=== PATIENT | male | born 1945 | race Caucasian/White ===

== ENCOUNTER 2016-08-30 20:32 | Inpatient (IN) | payer OTHER ==
[~2016-08-30] VITALS: Ht 188 cm; Wt 96.1 kg
[~2016-08-30 20:32] MED LIST: ALKA SELTZER PO; AMBIEN5 MG PO; ASPIRIN81 M1 PO; ATORVASTATIN CA40 MG PO; BUPROPION HCL75 MG PO; CARVEDILOL12.5 MG PO; CARVEDILOL25 MG PO; EXCEDRIN EXTRA1 TAB PO; FENOFIBRATE160 MG PO; FUROSEMIDE20 MG PO; FUROSEMIDE40 MG PO; HYDRALAZINE HCL25 MG PO; IRBESARTAN300 MG PO; ISOSORBIDE MONO30 MG PO; LANTUS SOL100 UNITS/ SC; LIPITOR80 MG PO; LOPRESSOR25 MG PO; NEURONTIN300 MG PO; NITROSTAT0.4 MG SL; NOVOLOG PE100 UNITS/ SC; OMEPRAZOLE20 M1 PO; PX ASPIRIN325 MG PO; SEROQUEL100 MG PO; SERTRALINE HCL100 MG PO; SPIRONOLACTONE25 MG PO; TAMSULOSIN HCL0.4 MG PO; VICODIN EQUIVAL1 TAB PO; WELLBUTRIN SR150 MG PO; [UNRECOGNIZED DRUG - OTHER] PO
--- NOTE | 2016-08-30 22:43 | DIAGNOSTIC IMAGING REPORT ---
PROCEDURE: XR CHEST 1 VIEW INDICATION: SHORTNESS OF BREATH TECHNIQUE: Portable AP view 09:09 p.m. COMPARISON: Chest x-ray 02/19/2015 FINDINGS: Stable mild cardiomegaly with median sternotomy and CABG. There is new mild pulmonary vascular congestion and small bilateral pleural effusions. Lungs are clear. Bones are unremarkable. IMPRESSION: 1. Stable mild cardiomegaly with mild CHF 2. CABG
--- NOTE | 2016-08-30 23:08 | ED NURSING NOTES ---
Clinical Report - Nurses Merged With [facility] [address] [place] [address] 08/30/2016 20:33 Patient: VENUS RODRIGUEZ TRIAGE Triage time 20:36. Acuity: LEVEL 2. Chief Complaint: SHORTNESS OF BREATH and (Reports onset SOB about 4 days ago. Says he has hx of CHF. Has not tried any treatment. Saw PCP about 2 weeks ago. Activity aggravates SOB, alleviating factors "B-PAP."). Alert. SEPSIS SCREEN: Sepsis Screen: negative. Negative (no infection suspected/documented). --20:43 Saad Gaviria R.N. 20:36 08/30/16. BP: 131/105 (regular adult cuff) taken on the left arm, via an automated monitor, while lying. HR: 74 (normal rate). RR: 28 (regular, labored and rapid). O2 saturation: 95% on room air. Temp: 97.4 F (tympanic). Pain level now: 0/10. --20:43 Saad Gaviria R.N. Weight: 94.8 kg stated. Height/Length: 74 inches Per Patient. BMI: 26.9. --20:39 Saad Gaviria R.N. Medications BuPROPion HBr Oral 2 tab day . Fenofibrate Oral 160 mg, q day. Gabapentin Oral 300 mg, 3x a day. HydrALAZINE HCl Oral (Tablet 25 mg). Hydrocodone-Acetaminophen Oral 5 mg, as needed. Insulin, lantis 25units bid, novalog 20units with each meal . Irbesartan Oral 300 mg, daily. Isosorbide Mononitrate Oral (Tablet 20 mg) 1 tablet, tid . Nitroglycerin Sublingual 0.4 mg. Omeprazole Oral 20 mg, daily. Tamsulosin HCl Oral 0.4 mg, daily. --20:38 Saad Gaviria R.N. [place] Oral, as needed. ASA Oral 81mg, day. Atorvastatin Calcium Oral (Tablet 80 mg) 1 tablet, at bedtime. Sertraline HCl Oral (Tablet 100 mg) 1-1/2 tablets, daily. Zolpidem Tartrate Oral 5 mg, at bedtime. --20:38 Nawaf Adamson R.N. Combivent Respimat Inhalation (Aerosol Solution 20-100 mcg/act) one puff, 4 x daily. --00:03 Nawaf Adamson R.N. MetFORMIN HCl Oral 500 mg, 2x a day. --00:03 Nawaf Adamson R.N. Furosemide Oral 40 mg, 2x a day. --00:05 Nawaf Adamson R.N. Carvedilol Phosphate ER Oral 12.5mg, 2 x daily. --00:06 Nawaf Adamson R.N. HumaLOG Subcutaneous 20-25 units, before meals. --00:07 Nawaf Adamson R.N. Isosorbide Mononitrate ER Oral 30mg x 3 tabs, 3 x diaily. --00:08 Nawaf Adamson R.N. Metoprolol Tartrate Oral 25 mg, 2 x daily. --00:09 Nawaf Adamson R.N. Lantus Subcutaneous 30 units, 2x a day. --00:11 Nwaaf Adamson R.N. Spiriva HandiHaler Inhalation 2puffs, 2 x daily. --00:12 Nawaf Adamson R.N. Spironolactone Oral 25 mg, daily. --00:14 Nawaf Adamson R.N. NTG 0.4mg, as needed. --00:14 Nawaf Adamson R.N. The following entry was struck and corrected by Nawaf Adamson R.N., 00:05 (08/31/16) Reason for correction - other(correction). <<STRICKEN ENTRY-- Zolpidem Tartrate Oral 5 mg. --20:38 Saad Gaviria R.N. --END STRIKE>> The following entry was struck and corrected by Nawaf Adamson R.N., 00:02 (08/31/16) Reason for correction - other(correction). <<STRICKEN ENTRY-- Sertraline HCl Oral (Tablet 100 mg), daily. --20:38 Saad Gaviria R.N. --END STRIKE>> The following entry was struck and corrected by Nawaf Adamson R.N., 00:02 (08/31/16) Reason for correction - other(correction). <<STRICKEN ENTRY-- Atorvastatin Calcium Oral (Tablet 40 mg). --20:38 Saad Gaviria R.N. --END STRIKE>> The following entry was struck and corrected by Nawaf Adamson R.N., 00:01 (08/31/16) Reason for correction - other(correction). <<STRICKEN ENTRY-- [place] Oral. --20:38 Saad Gaviria R.N. --END STRIKE>> The following entry was struck and corrected by Nawaf Adamson R.N., 00:01 (08/31/16) Reason for correction - other(correction). [facility] ASA Oral 324mg , day. --20:38 Saad Gaviria R.N. --END STRIKE>>. Medication/allergy information source: the patient. --20:43 Saad Gaviria R.N. Allergies LIsinopril. MetFORMIN HCl. Simvastatin. --20:38 Saad Gaviria R.N. History Arrived by private vehicle. Historian: patient. Accompanied by family. Primary physician (Cristian Oseguera). Onset. (about 4 days ago). He has had a nonproductive cough. Reports experiencing mild sweating episodes. No fever or chills. PAST MEDICAL HX: Immunizations: has received pneumonia vaccine. Has not received seasonal influenza immunization. SOCIAL HX: Current every day light tobacco smoker (cigarette)- less than 1/2 a pack per day (Working on quitting, smokes about 4 cigarettes/day). Occasional alcohol use. No drug use. He has not traveled outside the [place] The patient was exposed to MRSA. ABUSE ASSESSMENT: Abuse assessment: The patient was asked "Do you feel safe in your home?" and "Has anyone hurt you or threatened to hurt you?". No report of abuse. SELF HARM ASSESSMENT: A self harm assessment was performed. The patient answered "no" to the question "Do you have thoughts of harming or killing yourself?". NUTRITIONAL RISK ASSESSMENT: The nutritional risk assessment revealed no deficiencies. LEARNING NEEDS ASSESSMENT: The learning needs assessment revealed no barriers. FALL RISK ASSESSMENT: Fall risk assessment completed. Risk factors identified include patient age greater than 65 years and impairment of mobility. Fall interventions initiated. Patient placed on stretcher. Side rails up x2. Brakes on Bed in low position. Patient identified as a fall risk by ID band. Call light in reach of patient. Instructed not to get up without assistance. FUNCTIONAL ASSESSMENT: Functional assessment performed: wears glasses- this visual impairment is an ongoing problem. SKIN INTEGRITY ASSESSMENT: Skin integrity risk assessment completed. No skin integrity risk identified. --20:43 Saad Gaviria R.N. The patient has had diarrhea. --20:51 Saad Gaviria R.N. PROBLEMS: Headache. Dyspnea. Near Syncope. Gastroesophageal Reflux. Hypertension. Hyperlipidemia. Lung Disease. Pneumonia. COPD - Chronic Obstructive Pulmonary Disease. Heart Disease. Coronary Artery Disease. Wound Infection. Back Pain. Acute Myocardial Infarction. Foot ulcer. Prostate Disease. Depression. Gastroesophageal Reflux Disease. Renal Failure. Diabetes Mellitus. Congestive Heart Failure. Respiratory Failure. --20:38 Saad Gaviria R.N. ADDITIONAL SURGERIES: Cabg x 2 . Hand surgery. Tonsillectomy. --20:38 Saad Gaviria R.N. Assessment GENERAL / NEURO / PSYCH: Alert. Oriented X 4. Appears in distress. Watson Coma Scale: 15- eyes open spontaneously (4); best verbal response- oriented x 4 (5); best motor response- obeys commands (6). RESPIRATORY: Moderate respiratory distress. SKIN: Skin is pale. Skin is dry. --20:43 Saad Gaviria R.N. Interventions ID and allergy band on patient. To treatment room. --20:43 Saad Gaviria R.N. PHYSICAL ASSESSMENT 20:45 08/30/16. To room via wheelchair. GENERAL / NEURO / PSYCH: Alert. Oriented X 4. Appears in distress. RESPIRATORY: Severe respiratory distress. The patient can speak a few words at a time. Prominent intercostal accessory muscle use. Chest nontender. Breath sounds within normal limits. CVS: Cardiac rhythm: atrial fib/flutter with rapid ventricular response. Pulses: right radial 1+ and left radial 1+. Capillary refill less than 2 seconds. GI / : Abdomen soft and nontender. SKIN: Skin is dry. Skin is cool. --01:36 Saad Gaviria R.N. NURSING PROGRESS NOTES The initial plan of care for this patient has been created This plan of care was discussed with the patient. monitoring tech, pulse oximeter and NIBP monitor placed on patient; nuclear monitoring technician- Lead II. Patient gowned. Reassurance given to the patient. Two patient identifiers checked. Call light placed in reach. Side rails up x 2. Bed placed in lowest position. Patient ready for evaluation- ED physician notified. --20:44 Saad Gaviria R.N. 20:44 08/30/2016 Site #1 started via IV in the left antecubital space with an 20g angiocath, with aseptic technique and good blood return; one attempt. Blood drawn: rainbow set. Labeled in the presence of the patient and sent to the lab. Saline lock flushed with 10 mL saline. --20:44 Saad Gaviria R.N. 20:47 08/30/16. BP: 151/123 (regular adult cuff) taken on the right arm, via an automated monitor, while lying. HR: 154 (irregular and tachycardic). RR: 28 (labored and rapid). O2 saturation: 97% on room air. --20:48 Saad Gaviria R.N. Cardiac rhythm: atrial fibrillation with rapid ventricular response. --20:48 Saad Gaviria R.N. EKG time: (2043). EKG was performed by a tech and shown to the ED physician. --20:53 Nanci Solis R.N. EKG time: (2043 PM). EKG was ordered, performed by a tech and shown to the ED physician. --21:08 Corrie Jenkins 21:16 08/30/2016 NITROGLYCERIN PASTE Topical 1.5 inch. Applied to the left chest. Allergies verified and confirmed 5 rights. --21:16 Nanci Solis R.N. 21:17 08/30/2016 Diltiazem IVP 15 mg given over 3 minute(s) via site #1. Allergies verified and confirmed 5 rights. IV patency established. IV site checked: no pain, redness, or swelling. IV flushed thoroughly pre- and post-medication administration. IVP given by RN. --21:17 Nanci Solis R.N. 21:29 08/30/16. The patient has had no adverse reaction. Overall patient status- he states feels the same. CVS: Cardiac rhythm: atrial fibrillation with rapid ventricular response; (148). --21:29 Nanci Solis R.N. 21:37 08/30/16. In/out catheterization. During procedure hand hygiene observed and sterile equipment and aseptic technique used. Return of kamilla-colored clear urine. He tolerated procedure well. Checked patient name and birthdate: patient confirmed. Catheterized urine collected; sample sent to lab for urinalysis and HCG. Specimen labeled in the presence of the patient. --21:37 Nanci Solis R.N. 21:37 08/30/16. BP: 137/74. HR: 149. RR: 30. O2 saturation: 99% on room air. --21:37 Nanci Solis R.N. 21:54 08/30/2016 Cardizem IVP 25 mg given over 2 minute(s) via site #1. Allergies verified and confirmed 5 rights. IV patency established. IV site checked: no pain, redness, or swelling. IV flushed thoroughly pre- and post-medication administration. IVP given by RN. --21:59 Nanci Solis R.N. 22:00 08/30/16. BP: 127/92. HR: 150. RR: 22. O2 saturation: 95% on nasal cannula at 2 liters/minute. --22:00 Nanci Solis R.N. 22:12 08/30/2016 Site #2 started via IV in the right antecubital space with an 18g angiocath, with aseptic technique and good blood return; one attempt. Saline lock flushed with 10 mL saline. --22:27 Nanci Solis R.N. 22:16 08/30/2016 Adenosine IVP 6 mg given over 1 second(s) via site #1. Allergies verified and confirmed 5 rights. IV patency established. IV site checked: no pain, redness, or swelling. IV flushed thoroughly pre- and post-medication administration. IVP given by RN. --22:26 Nanci Solis R.N. 22:22 08/30/2016 Adenosine IVP 12 mg given over 1 second(s) via site #2. Allergies verified and confirmed 5 rights. IV patency established. IV site checked: no pain, redness, or swelling. IV flushed thoroughly pre- and post-medication administration. IVP given by RN. --22:27 Nanci Solis R.N. 22:27 08/30/16. BP: 116/88. HR: 136. RR: 22. O2 saturation: 95% on nasal cannula at 2 liters/minute. --22:28 Nanci Solis R.N. 22:59 08/30/2016 Started 15 mg of Diltiazem Drip IV in bag #1 125 mL; at 15 mg/hr over 4 hour(s) via site #2 via IV pump. Allergies verified and confirmed 5 rights. IV patency established. IV site checked: no pain, redness, or swelling. IV flushed thoroughly pre- and post-medication administration (IV diltiazem bolus of 15 mg given prior to start of drip). --22:59 Nanci Solis R.N. 23:08/30/2016 Metoprolol (Metoprolol Tartrate) IVP 5 mg given over 1 minute(s) via site #1. Allergies verified and confirmed 5 rights. IV patency established. IV site checked: no pain, redness, or swelling. IV flushed thoroughly pre- and post-medication administration. IVP given by RN. --23:01 Nanci Solis R.N. <<STRICKEN ENTRY-- 23:10 08/30/2016 Metoprolol (Metoprolol Tartrate) IVP 5 mg given over 1 minute(s) via site #1. Allergies verified and confirmed 5 rights. IV patency established. IV site checked: no pain, redness, or swelling. IV flushed thoroughly pre- and post-medication administration. --23:10 Nanci Solis R.N. --END STRIKE>> Correction. --23:10 Nanci Solis R.N. 23:08/30/2016 Metoprolol (Metoprolol Tartrate) IVP 5 mg given over 1 minute(s) via site #1. Allergies verified and confirmed 5 rights. IV patency established. IV site checked: no pain, redness, or swelling. IV flushed thoroughly pre- and post-medication administration (per VO from ED MD). --23:10 Nanci Solis R.N. 23:10 08/30/16. BP: 134/84. HR: 91. RR: 18. O2 saturation: 95% on nasal cannula at 2 liters/minute. --23:11 Nanci Solis R.N. 23:18 08/30/16. BP: 120/79. HR: 89. RR: 20. O2 saturation: 96% on nasal cannula at 2 liters/minute. --23:19 Nanci Solis R.N. 23:20 08/30/16. Care transferred and report given (Saad, ED RN). --23:20 Nanci Solis R.N. 23:35 08/30/16. BP: 107/76 (regular adult cuff) taken on the left arm, via an automated monitor, while lying. HR: 72 (irregular and normal rate). RR: 28 (regular, labored and rapid). O2 saturation: 99% on nasal cannula at 2 liters/minute. --23:38 Saad Gaviria R.N. RESPIRATORY: Mild respiratory distress present (Tripod position.). SKIN: Skin is warm and dry. --23:38 Saad Gaviria R.N. 00:15 08/31/2016 Diltiazem Drip IV via IV site #2 Rate Changed: bag #1 decreased to 12.5 mg/hr via IV pump. IV patency established. IV site checked: no pain, redness, or swelling. IV flushed thoroughly. Confirmed 5 Rights. --00:15 Saad Gaviria R.N. 00:17 08/31/16. BP: 115/71 (regular adult cuff) taken on the right arm, via an automated monitor, while lying. HR: 91 (irregular). RR: 26 (regular, unlabored and rapid). O2 saturation: 100% on nasal cannula at 2 liters/minute. --00:18 Saad Gaviria R.N. ( At 2335 BP was 88/55. Diltiazem drip decreased from 15 to 12.5 mg/hr. BP responded well.). --00:18 Saad Gaviria R.N. 00:08/31/2016 Diltiazem Drip IV Continued: upon admission at the rate of 12.5 mg/hr bag #1. IV patency established. IV site checked: no pain, redness, or swelling. IV flushed thoroughly. --00:25 Saad Gaviria R.N. 00:08/31/2016 Adenosine IVP Response: no adverse reaction. --00:25 Saad Gaviria R.N. 00:08/31/2016 Adenosine IVP Response: no adverse reaction. --00:25 Saad Gaviria R.N. 00:08/31/2016 Cardizem IVP Response: no adverse reaction symptoms are the same. The patient feels the same. --00: Saad Gaviria R.N. 00:08/31/2016 Diltiazem IVP Response: no adverse reaction symptoms are the same. The patient feels the same. --00:25 Saad Gaviria R.N. 00:08/31/2016 NITROGLYCERIN PASTE Topical Response: no adverse reaction symptoms have improved. --00:25 Saad Gaviria R.N. DISPOSITION / DISCHARGE Condition at departure: stable. The goals identified in the patient's plan of care were met. WATSON COMA SCORE: Watson Coma Scale: 15- eyes open spontaneously (4); best verbal response- oriented x 4 (5); best motor response- obeys commands (6). --00:23 Saad Gaviria R.N. 00:08/31/16. BP: 111/73 (regular adult cuff) taken on the left arm, via an automated monitor, while lying. HR: 71 (irregular and normal rate). RR: 28 (regular, labored and rapid). O2 saturation: 98% on nasal cannula at 2 liters/minute. Temp: 97.5 F (oral). Pain level now: 0/10. --00:23 Saad Gaviria R.N. Report was given to a nurse via a phone call. Report included patient's care, treatment, medications, reviewed medication reconcilliation, and condition (including any recent changes or anticipated changes). All questions were answered. Report was acknowledged and care was transferred. (JENNIFER Casey). --00:30 Saad Gaviria R.N. Transported via stretcher by nurse with monitor, IV and O2. Patient's personal items; items were placed in belongings bag, given to the patient and transported with the patient. Collection of belongings was witnessed by 1 nurse. --00:52 Saad Gaviria R.N. ( Patient transported to inpatient room 305 on behalf of ER nurse Saad Gaviria RN.). --01:13 Simba Vincent R.N. 01:15. Departure time: 0115. --01:34 Saad Gaviria R.N. Locked/Released at 08/31/2016 1:36 by Saad Gaviria R.N.
--- NOTE | 2016-08-30 23:08 | ED ORDER SUMMARY ---
..... Patient: VENUS RODRIGUEZ OrderSheet [facility] VisitID: [id number] [place] [address] 71y, M Registration Date/Time: 08/30/2016 ORDER SHEET Weight: 94.8 kg (stated) Allergies: LIsinopril, MetFORMIN HCl, Simvastatin GENERAL ORDERS: Chest 1V Urgent (20:54 08/30/2016 PHutchinson DO) (Ack 20:57 CHagerty ER Blurb Writer) (21:09 RFay) Gallery Or Museum Attendant (Continuous) (20:54 08/30/2016 PHutchinson DO) (20:55 MWinterer R.N.) UA-Culture if indicated Urgent (20:54 08/30/2016 PHutchinson DO) (Ack 20:56 CHagerty ER Blurb Writer) (21:37 MWinterer R.N.) Cardiac Panel Stat (20:54 08/30/2016 PHutchinson DO) (20:56 CHagerty ER Blurb Writer) BNP Urgent (20:54 08/30/2016 PHutchinson DO) (20:56 CHagerty ER Blurb Writer) D-Dimer Urgent (20:54 08/30/2016 PHutchinson DO) (20:56 CHagerty ER Blurb Writer) Amylase Urgent (20:54 08/30/2016 PHutchinson DO) (20:56 CHagerty ER Blurb Writer) TSH Urgent (20:54 08/30/2016 PHutchinson DO) (20:56 CHagerty ER Blurb Writer) Urine Drug Screen Urgent (20:54 08/30/2016 PHutchinson DO) (Ack 20:56 CHagerty ER Blurb Writer) (21:37 MWinterer R.N.) Pulse oximeter (20:54 08/30/2016 PHutchinson DO) (20:55 MWinterer R.N.) EKG - ER Stat (20:54 08/30/2016 PHutchinson DO) (20:55 MWinterer R.N.) Vitals (20:54 08/30/2016 PHutchinson DO) (20:55 MWinterer R.N.) Oxygen (2 L/min) (NC) (21:54 08/30/2016 Jayden NUÑEZ) (21:59 MWinterer R.N.) MEDICATION ORDERS: NitroGLYCERIN Paste Topical 1.5 in. (NOW, to CW) (21:02 08/30/2016 [facility]) (Ack 21:06 MWinterer R.N.) (21:16 MWinterer R.N.) IV FLUIDS: IV Saline Lock (20:54 08/30/2016 [facility]) (20:58 MWinterer R.N.) Diltiazem IV 15 mg (NOW) (21:01 08/30/2016 [facility]) (Ack 21:06 MWinterer R.N.) (21:17 MWinterer R.N.) Cardizem IV 25 mg (NOW) (21:54 08/30/2016 Jayden NUÑEZ) (21:59 MWinterer R.N.) Adenosine IV 6 mg (NOW) (22:07 08/30/2016 Jayden NUÑEZ) (22:26 MWinterer R.N.) Diltiazem Drip IV : initial bolus 15 mg, then 15 mg/hr for 4h (NOW); Routine (22:33 08/30/2016 Jayden NUÑEZ) (Ack 22:46 MWinterer R.N.) (22:59 MWinterer R.N.) Metoprolol IV 5 mg (NOW) (22:33 08/30/2016 Jayden NUÑEZ) (Ack 22:46 MWinterer R.N.) (23:01 MWinterer R.N.) ORDER SHEET NOTES: [Electronically signed by aSad Gaviria R.N. (01:36 08/31/2016)] [Electronically signed by Joshua Solorzano MD (23:11 09/01/2016)] [Electronically locked/signed by Saad Gaviria R.N. (:36 08/31/2016)]
--- NOTE | 2016-08-30 23:08 | ED CLINICAL REPORT ---
Clinical Report - Physicians/Mid Levels [facility] [address] [place] [address] 08/30/2016 20:33 Patient: VENUS RODRIGUEZ Time Seen: 20:54. Arrived- By private vehicle. Historian- patient. CPT: Critical care < 74 min plus (#[id number]) and 30-74 min plus (#[id number]). EKG interpretation (#[id number]). HISTORY OF PRESENT ILLNESS Chief Complaint: DYSPNEA. This started several days ago and is still present. It was gradual in onset and has been waxing/waning. The dyspnea is described as moderate and is worsened by exertion and is improved by rest. The patient has had a cough, dyspnea on exertion, foot swelling and orthopnea. No sputum production, fever, wheezing or calf pain. (States ?CPAP helps.). Similar symptoms previously: Recent medical care: Not recently seen/assessed. REVIEW OF SYSTEMS No chills, fever, decreased vision, nasal congestion or sore throat. No calf pain, chest pain, cough, pedal edema or palpitations. No abdominal pain, black stools, bloody stools, constipation or diarrhea. No nausea, vomiting, urinary frequency or hematuria. No skin lesions or rash, alteration in mental status, diabetic symptoms or easy bruising. No difficulty with urination. The patient has had fatigue, difficulty breathing and weakness. No difficulty walking. All systems otherwise negative, except as recorded above. PAST HISTORY Hypertension. Moderate type II diabetes mellitus treated with insulin. Congestive heart failure. AK and bypass 2013. Chronic obstructive pulmonary disease. Pneumonia. Hyperlipidemia. Dyspnea. Near Syncope. Gastroesophageal Reflux. Hypertension. Hyperlipidemia. Lung Disease. Pneumonia. COPD - Chronic Obstructive Pulmonary Disease. Heart Disease. Coronary Artery Disease. Wound Infection. Back Pain. Acute Myocardial Infarction. Foot ulcer. Prostate Disease. Depression. Gastroesophageal Reflux Disease. Renal Failure. Diabetes Mellitus. Congestive Heart Failure. Respiratory Failure. SURGERIES: CABG x 2 . Hand surgery. Tonsillectomy. SOCIAL HISTORY Smoker- current status unknown. ADDITIONAL NOTES The nursing notes have been reviewed. PHYSICAL EXAM Vital Signs: 08/30/2016 20:47 BP: 151/123. HR: 154. RR: 28. O2 saturation: 97%. Appearance: Alert. Patient in mild distress. Eyes: Pupils equal, round and reactive to light. Eyes normal inspection. ENT: Ears normal. Nose normal. Pharynx normal. Uvula midline. Neck: Normal inspection. No jugular venous distention. Neck supple. CVS: Tachycardia. Abnormal rhythm, which is regularly irregular. Heart sounds normal. Pulses normal. Respiratory: No respiratory distress. Breath sounds normal. Abdomen: Soft and nontender. Back: Normal inspection. Skin: Skin warm. Normal skin color. No rash. Extremities: Extremities exhibit normal ROM. No lower extremity edema. Neuro: Oriented X 3. No motor deficit. No sensory deficit. Reflexes normal. LABS, X-RAYS, AND EKG EKG: EKG time: (20:44). Atrial fibrillation (ventricular rate 145 with aberrrantly conducted complexes). Occasional ectopic beats. Premature ventricular contractions. LBBB. Non-specific ST segment / T wave abnormalities. The study has been interpreted contemporaneously by me. The EKG appears to be a good tracing. Rhythm Strip #1: Atrial fibrillation (ventricular rate 140). Premature ventricular contractions. Non-specific ST segment / T-wave abnormalities. Chest X-ray: Vascular congestion present. No pulmonary edema. Views: AP (portable). Technique: good. The X-rays were independently viewed by me and interpreted contemporaneously by me. Laboratory Tests: CBC w Manual Diff: (JOHNNY: 09/01/2016 04:35) ( MsgRcvd 09/01/2016 05:38) Final results Test Result Flag Units (Reference) WHITE BLOOD COUNT NO REFLEX 9.3 K/uL (4.5-11.5) RED BLOOD COUNT 4.43 L M/uL (4.50-5.90) HEMOGLOBIN 12.5 L gm/dL (13.5-17.5) HEMATOCRIT 39.2 L % (41.0-53.0) MEAN CELL VOLUME 89 fL (80-100) MEAN CORPUSCULAR HGB 28 pg (26-34) MEAN CORPUSCULAR HGB CONC 32 g/dL (31-37) RED CELL DISTRIBUTION WIDTH 15.9 H % (11.6-14.8) PLATELET COUNT 226 K/uL (150-400) POLY % 66 % (50-75) BAND % 8 % (0-8) LYMPH 20 L % (25-40) MONO 3 % (3-14) EOSINOPHIL % 1 % (0-4) BASOPHIL % 2 % (0-2) METAMYELOCYTE % 0 % (0-1) MYELOCYTE 0 % (0-1) OTHER CELL TYPE 0 ANISOCYTOSIS 1+ [id number]: (JOHNNY: 09/01/2016 04:35) ( [facility] 09/01/2016 05:20) Final results Test Result Flag Units (Reference) CALCULATED A1C 8.7 H % (4.5-6.2) The [place] [employer] recommends that aprimary goal of therapy should be a HbA1c of <7% and thatphysicians should reevaluate the treatment regimen inpatients with HbA1c values consistently >8%. ESTIMATED AVERAGE GLUCOSE 203 mg/dL BNP: (JOHNNY: 09/01/2016 04:35) ( [facility] 09/01/2016 05:22) Final results Test Result Flag Units (Reference) B-TYPE NATRIURETIC PEPTIDE 1260 H pg/ml (5-100) BMP: (JOHNNY: 09/01/2016 04:35) ( [facility] 09/01/2016 05:15) Final results Test Result Flag Units (Reference) GLUCOSE 123 H mg/dL (70-110) BUN 46 H mg/dL (7-18) CREATININE 1.8 H mg/dL (0.6-1.3) Estimated GFR 39.73 mL/min Estimated GFR- 48.15 mL/min Note: Persistent reduction over 3 months in eGFR<60 mL/min/1.73 m2 defines CKD. Patients with eGFR values>=60 mL/min/1.73 m2 may also have CKD if evidence ofpersistent proteinuria. Additional information may be foundat www.kidney.org. SODIUM 135 L mmol/L (136-145) POTASSIUM 3.4 L mmol/L (3.5-5.1) CHLORIDE 99 mmol/L (98-107) CARBON DIOXIDE 25 mmol/L (21-32) CALCIUM 8.4 L mg/dL (8.5-10.1) CHOLESTEROL 101 L mg/dL (140-200) TRIGLYCERIDES 71 mg/dL (30-200) HDL CHOLESTEROL 24 L mg/dL (32-96) LDL,CALCULATED 63 mg/dL Normal range for LDL by direct measurement is 66-178The LDL reported is a calculated value and may approximatea direct measurement. CHOL/HDL 4.2 LDL/HDL 2.6 CORONARY RISK FACTOR 0.7 (0.4-1.0) CBC w Manual Diff: (JOHNNY: 08/31/2016 04:40) ( [facility] 08/31/2016 10:21) Final results Test Result Flag Units (Reference) WHITE BLOOD COUNT NO REFLEX 11.6 H K/uL (4.5-11.5) RED BLOOD COUNT 4.59 M/uL (4.50-5.90) HEMOGLOBIN 13.2 L gm/dL (13.5-17.5) HEMATOCRIT 40.7 L % (41.0-53.0) MEAN CELL VOLUME 89 fL (80-100) MEAN CORPUSCULAR HGB 29 pg (26-34) MEAN CORPUSCULAR HGB CONC 32 g/dL (31-37) RED CELL DISTRIBUTION WIDTH 15.3 H % (11.6-14.8) PLATELET COUNT 243 K/uL (150-400) POLY % 69 % (50-75) BAND % 2 % (0-8) LYMPH 16 L % (25-40) MONO 12 % (3-14) EOSINOPHIL % 0 % (0-4) BASOPHIL % 1 % (0-2) METAMYELOCYTE % 0 % (0-1) MYELOCYTE 0 % (0-1) OTHER CELL TYPE 0 TARGET CELLS 1+ BMP: (JOHNNY: 08/31/2016 04:40) ( MsgRcvd 08/31/2016 08:05) Final results Test Result Flag Units (Reference) GLUCOSE 265 H mg/dL (70-110) BUN 44 H mg/dL (7-18) CREATININE 2.1 H mg/dL (0.6-1.3) Estimated GFR 33.25 mL/min Estimated GFR- 40.30 mL/min Note: Persistent reduction over 3 months in eGFR<60 mL/min/1.73 m2 defines CKD. Patients with eGFR values>=60 mL/min/1.73 m2 may also have CKD if evidence ofpersistent proteinuria. Additional information may be foundat www.kidney.org. SODIUM 131 L mmol/L (136-145) POTASSIUM 4.0 mmol/L (3.5-5.1) CHLORIDE 95 L mmol/L (98-107) CARBON DIOXIDE 21 mmol/L (21-32) CALCIUM 8.7 mg/dL (8.5-10.1) Troponin-I: (JOHNNY: 08/31/2016 20:50) ( [facility] 08/31/2016 21:29) Final results Test Result Flag Units (Reference) TROPONIN I 0.09 ng/mL (0.00-1.5) TROPONIN REFERENCE RANGE:<0.1 NEGATIVE0.1-1.5 INDETERMINANT>1.5 POSITIVE Troponin-I: (JOHNNY: 08/31/2016 12:14) ( [facility] 08/31/2016 12:49) Final results Test Result Flag Units (Reference) TROPONIN I 0.13 ng/mL (0.00-1.5) TROPONIN REFERENCE RANGE:<0.1 NEGATIVE0.1-1.5 INDETERMINANT>1.5 POSITIVE Troponin-I: (JOHNNY: 08/31/2016 04:40) ( [facility] 08/31/2016 05:09) Final results Test Result Flag Units (Reference) TROPONIN I 0.14 ng/mL (0.00-1.5) TROPONIN REFERENCE RANGE:<0.1 NEGATIVE0.1-1.5 INDETERMINANT>1.5 POSITIVE UA-Culture if indicated: (JOHNNY: 08/30/2016 21:35) ( [facility] 08/30/2016 22:00) Final results Test Result Flag Units (Reference) URINE COLOR YELLOW URINE APPEARANCE CLEAR URINE GLUCOSE NEGATIVE (NEGATIVE) URINE BILIRUBIN 2+ (NEGATIVE) URINE KETONE NEGATIVE (NEGATIVE) URINE SPECIFIC GRAVITY >= 1.030 (1.010-1.030) URINE PH 5.0 (5.0-8.0) URINE PROTEIN 2+ (NEGATIVE) URINE UROBILINOGEN 1.0 EU/dL (0.2-1.0) URINE NITRITE NEGATIVE (NEGATIVE) URINE BLOOD NEGATIVE (NEGATIVE) URINE LEUK ESTERASE NEGATIVE (NEGATIVE) URINE RBC 0-1 rbc/hpf (0-1) URINE WBC 0-1 wbc/hpf (0-1) URINE EPITHELIAL CELLS 0-1 EPI/hpf (0-5) URINE BACTERIA MANY (4+) (NONE SEEN) URINE COMMENT CULTURE INDICATED URINE CULTURES ARE SET-UP BASED ON THE FOLLOWING CRITERIA:POSITIVE NITRITEPOSITIVE LEUKOCYTE ESTERASEGREATER THAN 10 WHITE BLOOD CELLSMODERATE (2+) OR GREATER BACTERIA CBC w Diff: (JOHNNY: 08/30/2016 20:40) ( MsgRcvd 08/30/2016 21:12) Final results Test Result Flag Units (Reference) WHITE BLOOD COUNT 15.0 H K/uL (4.5-11.5) RED BLOOD COUNT 5.18 M/uL (4.50-5.90) HEMOGLOBIN 15.0 gm/dL (13.5-17.5) HEMATOCRIT 46.1 % (41.0-53.0) MEAN CELL VOLUME 89 fL (80-100) MEAN CORPUSCULAR HGB 29 pg (26-34) MEAN CORPUSCULAR HGB CONC 33 g/dL (31-37) RED CELL DISTRIBUTION WIDTH 15.6 H % (11.6-14.8) PLATELET COUNT 312 K/uL (150-400) NEUTROPHIL % 76.2 H % (50-75) LYMPH % 11.7 L % (25-40) MONO % 11.7 % (3-14) EOSINOPHIL % 0.1 % (0-4) BASOPHIL % 0.3 % (0-2) [id number]: (JOHNNY: 08/30/2016 20:40) ( MsgRcvd 08/30/2016 21:23) Final results Test Result Flag Units (Reference) D-DIMER QUANTITATIVE 1.15 H ug/mLFEU (0.27-0.52) The primary value of this quantitative assay relates toits negative predictive value (i.e. exclusion) of pulmonaryembolism/deep vein thrombosis/DIC.Elevated levels of d-dimer may also occur with:, age, cancer, inflammation, liver disease,post-op, infection, hematoma, coronary disease, peripheralarteriopathy, bleeding disorders and thrombolytic treatment.Results should be correlated with other clinical andradiological data.Testing Methodology: Latex Immunoassay Urine Drug Screen: (JOHNNY: 08/30/2016 21:35) ( [facility] 08/30/2016 21:57) Final results Test Result Flag Units (Reference) AMPHETAMINE/METHAMPHETAMINE NEGATIVE (NEGATIVE) BARBITURATE NEGATIVE (NEGATIVE) BENZODIAZEPINE NEGATIVE (NEGATIVE) CANNABINOID NEGATIVE (NEGATIVE) COCAINE NEGATIVE (NEGATIVE) ECSTASY POSITIVE H (NEGATIVE) METHADONE NEGATIVE (NEGATIVE) OPIATE NEGATIVE (NEGATIVE) The urine drug screen is a qualitative screening test fordrug overdose and abuse. All screen results should beconsidered as presumptive.Drugs screened for are as follows:BenzodiazepinesCocaineAmphetamines/MetamphetaminesTHC (Tetrahydrocannabinol)OpiatesBarbituratesEcstasyMethadonePositive results are unconfirmed. For confirmation, notifythe lab for the specimen to be sent to the reference lab.All confirmations must be performed by a differentmethodology.The ingestion of natural herbal and plant productscontaining Ephedra/Ephedra metabolites can produce in urineone or more substances capable of cross reacting withamphetamine/methamphetamine immunoassays. These testsprovide a preliminary result only. A more specificalternative chemical method must be used to obtain aconfirmed analytical result. BNP: (JOHNNY: 08/30/2016 20:40) ( [facility] 08/30/2016 21:37) Final results Test Result Flag Units (Reference) B-TYPE NATRIURETIC PEPTIDE 2420 H pg/ml (5-100) CHEM 13 PANEL: (JOHNNY: 08/30/2016 20:40) ( [facility] 08/30/2016 21:41) Final results Test Result Flag Units (Reference) GLUCOSE 284 H mg/dL (70-110) BUN 39 H mg/dL (7-18) CREATININE 2.4 H mg/dL (0.6-1.3) Estimated GFR 28.51 mL/min Estimated GFR- 34.55 mL/min Note: Persistent reduction over 3 months in eGFR<60 mL/min/1.73 m2 defines CKD. Patients with eGFR values>=60 mL/min/1.73 m2 may also have CKD if evidence ofpersistent proteinuria. Additional information may be foundat www.kidney.org. SODIUM 133 L mmol/L (136-145) POTASSIUM 4.4 mmol/L (3.5-5.1) CHLORIDE 95 L mmol/L (98-107) CARBON DIOXIDE 20 L mmol/L (21-32) CALCIUM 9.2 mg/dL (8.5-10.1) TOTAL PROTEIN 7.7 g/dL (6.4-8.2) ALBUMIN 3.9 g/dL (3.3-5.0) BILIRUBIN, TOTAL 2.8 H mg/dL (0.0-1.0) ALKALINE PHOSPHATASE 85 U/L (46-116) AST (SGOT) 405 H U/L (15-37) ALT (SGPT) 226 H U/L (12-78) MAGNESIUM 2.1 mg/dL (1.8-2.4) AMYLASE 31 U/L (25-115) CPK 192 U/L (24-260) TROPONIN I 0.16 ng/mL (0.00-1.5) TROPONIN REFERENCE RANGE:<0.1 NEGATIVE0.1-1.5 INDETERMINANT>1.5 POSITIVE THYROID STIMULATING HORMONE 3.646 uIU/mL (0.30-3.74) Culture, Urine: (JOHNNY: 08/30/2016 21:35) ( MsgRcvd 09/01/2016 11:19) Final results Test Result Flag Units (Reference) CULTURE, URINE DATE: 09/01/16 NO GROWTH AT:: NO GROWTH AT 2 DAYS PRELIM REPORT: FINAL REPORT . Pulse Oximetry: 08/30/2016 20:47 O2 saturation: 97%. PROGRESS AND PROCEDURES Course of Care: Nitroglycerin 1.5 inches paste inches. Diltiazem 15 mg IVP given. 21:57 08/30/16. Assumed care of patient at 2120 due to change of shift. Pt given 15 mg IV diltiazem with no change in rate. NTG past has been placed on patient. Pt says he feels a little better since being here. NC 02 placed on patient. 22:06 08/30/16. No response to 25 mg diltiazem IV. Pt Rhythm on EKG appears to be a grouped rhythm so is regularly irregular. Adenosine 6 mg IV Adenosine 12 mg IV Transient response Dilatiazem drip 10 mg per hour Metoprolol 5 mg IV times 2 Rate down to 100 and new EKG shows an atrial flutter with variable block. 23:12 08/30/16. Dr Sevilla here to admit patient. Critical care performed (95 minutes). Time is exclusive of separately billable procedures. Time includes: direct patient care, patient reassessment, coordination of patient care, interpretation of data (laboratory data, pulse oximetry, chest xrays and cardiac output measurements), review of patient's medical records, medical consultation, family consultation regarding treatment decisions and documentation of patient care. Procedures included in critical care time: peripheral IV placement and phlebotomy. Procedures excluded from critical care time: electrocardiography. Discussed case with on-call health care provider, (Roel). Reviewed test results. Agreed upon treatment plan and decision to admit. Health care provider will see patient in ED. Patient/family counseled. Old medical records ordered. Disposition orders written. Disposition: Admitted to the Critical Care Unit. CLINICAL IMPRESSION New onset atrial flutter. The patient has one or more high risk factors and/or two or more moderate risk factors for thromboembolism. The patient is prescribed warfarin or another FDA approved anticoagulant. Moderate chronic renal insufficiency. Indeterminant troponin. (Electronically signed by Joshua Solorzano MD 09/01/2016 23:11)
--- NOTE | 2016-08-30 23:08 | ED ORDER SUMMARY ---
..... Patient: VENUS RODRIGUEZ OrderSheet [facility] VisitID: [id number] [place] [address] 71y, M Registration Date/Time: 08/30/2016 ORDER SHEET Weight: 94.8 kg (stated) Allergies: LIsinopril, MetFORMIN HCl, Simvastatin GENERAL ORDERS: Chest 1V Urgent (20:54 08/30/2016 PHutchinson DO) (Ack 20:57 CHagerty ER Theater Usher) (21:09 RFay) Printing Machine Mechanic (Continuous) (20:54 08/30/2016 PHutchinson DO) (20:55 MWinterer R.N.) UA-Culture if indicated Urgent (20:54 08/30/2016 PHutchinson DO) (Ack 20:56 [facility] Usher) (21:37 MWinterer R.N.) Cardiac Panel Stat (20:54 08/30/2016 PHutchinson DO) (20:56 [facility] Usher) BNP Urgent (20:54 08/30/2016 PHutchinson DO) (20:56 [facility] Usher) D-Dimer Urgent (20:54 08/30/2016 PHutchinson DO) (20:56 CH[facility] Usher) Amylase Urgent (20:54 08/30/2016 PHutchinson DO) (20:56 CH[facility] Usher) TSH Urgent (20:54 08/30/2016 PHutchinson DO) (20:56 CHager[facility] Usher) Urine Drug Screen Urgent (20:54 08/30/2016 PHutchinson DO) (Ack 20:56 [facility] Usher) (21:37 MWinterer R.N.) Pulse oximeter (20:54 08/30/2016 PHutchinson DO) (20:55 MWinterer R.N.) EKG - ER Stat (20:54 08/30/2016 PHutchinson DO) (20:55 MWinterer R.N.) Vitals (20:54 08/30/2016 PHutchinson DO) (20:55 MWinterer R.N.) Oxygen (2 L/min) (NC) (21:54 08/30/2016 Jayden NUÑEZ) (21:59 MWinterer R.N.) MEDICATION ORDERS: NitroGLYCERIN Paste Topical 1.5 in. (NOW, to CW) (21:02 08/30/2016 [facility]) (Ack 21:06 MWinterer R.N.) (21:16 MWinterer R.N.) IV FLUIDS: IV Saline Lock (20:54 08/30/2016 [facility]) (20:58 MWinterer R.N.) Diltiazem IV 15 mg (NOW) (21:01 08/30/2016 [facility]) (Ack 21:06 MWinterer R.N.) (21:17 MWinterer R.N.) Cardizem IV 25 mg (NOW) (21:54 08/30/2016 Jyaden NUÑEZ) (21:59 MWinterer R.N.) Adenosine IV 6 mg (NOW) (22:07 08/30/2016 Jayden NUÑEZ) (22:26 MWinterer R.N.) Diltiazem Drip IV : initial bolus 15 mg, then 15 mg/hr for 4h (NOW); Routine (22:33 08/30/2016 Jayden NUÑEZ) (Ack 22:46 MWinterer R.N.) (22:59 MWinterer R.N.) Metoprolol IV 5 mg (NOW) (22:33 08/30/2016 Jayden NUÑEZ) (Ack 22:46 MWinterer R.N.) (23:01 MWinterer R.N.) ORDER SHEET NOTES: [Electronically signed by Saad Gaviria R.N. (01:36 08/31/2016)] [Electronically signed by Joshua Solorzano MD (23:11 09/01/2016)] [Electronically locked/signed by Saad Gaviria R.N. (:36 08/31/2016)]
--- NOTE | 2016-08-30 23:35 | Progress Note ---
Subjective General Admission History and Physical Examination Patient Name: Ean Schwartz Admission Date: August 30, 2016 Primary Care Provider: Nate Oseguera M.D. Attending Physician: Jaylan Sevilla M.D. Admitting Physician: Jaylan Sevilla M.D. Code Status: NO CODE Room: 305 SUBJECTIVE Historian: Patient and family Reliability: Fair Chief Complaint: Shortness of breath History of Present Illness: The patient is a 71-year-old white male with a significant past medical history of gastroesophageal reflux, chronic kidney disease stage III, diabetes mellitus, obstructive sleep apnea, coronary artery disease, hyperlipidemia, CHF, chronic back pain, peripheral arterial disease, colonic polyps, who presented to [facility] emergency department on the day of admission secondary to complaints of shortness of breath of 4 days duration. [facility] ER evaluation was consistent with new onset atrial flutter with rapid ventricular response-150/minute, CHF. Secondary to the above, the patient was admitted by Jaylan Sevilla M.D. for further evaluation and treatment. The history of present illness began approximately 4 days prior to admission when the patient experienced increasing shortness of breath. This was unassociated with chest pain. The patient denied palpitations. There are no symptoms of fever or chills. No productive cough. The patient denied leg pain. He did experience lower extremity edema. He had symptoms of orthopnea and dyspnea on exertion. Secondary to increasing shortness of breath the patient presented to [facility] emergency department for further evaluation and treatment. [facility] ER evaluation was consistent with atrial flutter with rapid ventricular response with heart rate of 150/m. The patient was treated with IV Cardizem and IV beta blockers with good rate control. Associated with this was elevated BNP without overt findings of pulmonary edema/decompensated CHF. Secondary to the above, the patient was admitted for further evaluation and treatment. PAST MEDICAL HISTORY Illnesses: 1. CHF 2. Diabetes mellitus 3. Peripheral arterial disease 4. Obstructive sleep apnea 5. Coronary artery disease 6. Hyperlipidemia 7. Chronic back pain 8. Gastroesophageal reflux 9. Colonic polyps 10. Chronic kidney disease stage III Allergies: 1. Lisinopril 2. Metformin 3. Simvastatin Medications: 1. Ambien 5 mg by mouth daily 2. ASA 81 mg 1 by mouth daily 3. Lipitor 80 mg by mouth daily 4. Bupropion 150 mg by mouth daily 5. Fenofibrate 160 mg by mouth daily 6. Gabapentin 300 mg by mouth 3 times a day 7. Hydrocodone-Acetaminophen 5/325 mg 1 by mouth every 6 hours when necessary pain 8. Lantus insulin 30 units subcutaneous twice a day 9. Humalog insulin 10-15 units subcutaneous 3 times a day 10. Irbesartan 300 mg by mouth daily 11. Isosorbide Mononitrate 20 mg by mouth twice a day 12. Nitroglycerin 0.4 mg sublingual when necessary chest pain 13. Prilosec 20 mg by twice a day 14. Seroquel 150 mg by mouth daily 15. Flomax 0.4 mg by mouth daily 16. Lasix 40 mg by mouth twice a day 17. Coreg 12.5 mg by mouth twice a day Surgery: 1. Fore foot amputation Injuries: 1. No significant Hospitalizations: 1. For above surgery and medical problems FAMILY HISTORY Parents: 1. Father, Román, , 74, CHF, 2. Mother, Shanita, , 86, ovarian cancer Siblings: 1. The patient has 3 siblings all which are in good health Children: 1. Male, Margarito, living, 45, healthy Other significant family history: None SOCIAL HISTORY 1. Marital Status: 2. Holiness: None 3. Education: College-4 years, degree in [employer] engineering 4. Employment History: biochemical engineer, retired 2007 5. Occupational health exposures: None HABITS 1. Tobacco: Long-term smoking, amount unknown continues to smoke at this time 2. Drugs: None 3. Alcohol: None 4. Caffeine: 6 cans soft drink per day HEALTH SUPERVISION Item/Test 1. Not reviewed IMMUNIZATIONS: 1. Pneumococcal: Previously obtained date unknown 2. Influenza: Previously obtained date unknown 3. Tetanus: Previously obtained date unknown ADVANCED DIRECTIVES: 1. Living well: No 2. POLST: No 3. Code Status: No Code, DNR/DNI 4. [employer] Health care: No 5. Donor card: No REVIEW OF SYSTEMS Remarkable for those things stated in the history of present illness and past medical history. Seventeen point review of system completed with the following notable findings: General: Weight gain, weakness Eyes: Corrective lenses Mouth: Teeth problems Respiratory: Shortness of breath, cough, asthma/COPD Cardiovascular: Irregular heartbeat, tachycardia, ankle edema, shortness of breath with exertion, shortness of breath when lying flat Genitourinary: Poor urinary stream, erectile dysfunction Gastrointestinal: Loss of appetite, reflux, diarrhea, constipation Musculoskeletal: Joint stiffness, joint pain, backache Neurological: Balance problems, memory loss, sensation changes lower extremities Psychological: Depression, difficulty sleeping, anxiety, hallucinations, loss of interest in enjoyable events Physical Exam Vital Signs / I&Os Vital Signs Date Time Temp Pulse Resp B/P Pulse O2 O2 Flow FiO2 Ox Delivery Rate 08/31 0812 62 08/31 0712 65 08/31 0710 97.5 72 28 115/69 96 Nasal 1.0 Cannula 08/31 0600 56 20 101/70 96 Nasal 1.0 Cannula 08/31 0542 92 Nasal 1.0 Cannula 08/31 0500 118 25 116/78 96 Nasal 2.0 Cannula 08/31 0445 149 26 112/80 97 Nasal 2.0 Cannula 08/31 0426 97.5 149 103/80 95 Nasal 2.0 Cannula 08/31 0315 108 20 129/81 95 Nasal 2.0 Cannula 08/31 0222 97.9 82 20 116/68 97 Nasal 2.0 Cannula 08/31 0154 2.0 08/31 0115 Nasal 2.0 Cannula 08/31 0110 93 16 108/65 95 Room Air 2.0 General Appearance Alert, Cooperative, Mild distress HEENT Atraumatic, PERRLA, EOMI, Moist mucous membranes Lungs Normal air movement, minimal basilar rales Neck Supple, No JVD Cardiovascular Normal S1 and S2, irregular rhythm, Rate controlled Abdomen Normal bowel sounds, Soft, No tenderness Extremities No cyanosis, No clubbing, 2+ pedal/ankle edema bilaterally Neurological Cranial nerves intact, No lateralizing signs Psych/Mental Status Mood normal, Confused LAB Results Laboratory Tests 08/30 Chemistry B-Natriuretic Peptide (5 - 100 pg/ml) 2420 Amylase Cancelled TSH 3rd Generation Cancelled Toxicology Urine Opiates Screen (NEGATIVE) NEGATIVE Urine Methadone Screen (NEGATIVE) NEGATIVE Ur Barbiturates Screen (NEGATIVE) NEGATIVE U Amphetamin/Meth Scrn (NEGATIVE) NEGATIVE MDMA (Ecstasy) Screen (NEGATIVE) POSITIVE U Benzodiazepines Scrn (NEGATIVE) NEGATIVE Urine Cocaine Screen (NEGATIVE) NEGATIVE U Cannabinoids Screen (NEGATIVE) NEGATIVE Urines Urine Color YELLOW Urine Appearance CLEAR Urine pH (5.0 - 8.0) 5.0 Ur Specific [place] (1.010 - 1.030) >= 1.030 Urine Protein (NEGATIVE) 2+ Urine Ketones (NEGATIVE) NEGATIVE Urine Blood (NEGATIVE) NEGATIVE Urine Nitrite (NEGATIVE) NEGATIVE Urine Bilirubin (NEGATIVE) 2+ Urine Urobilinogen (0.2 - 1.0 EU/dL) 1.0 Ur Leukocyte Esterase (NEGATIVE) NEGATIVE Urine RBC (0 - 1 rbc/hpf) 0-1 Urine WBC (0 - 1 wbc/hpf) 0-1 Ur Epithelial Cells (0 - 5 EPI/hpf) 0-1 Urine Bacteria (NONE SEEN) MANY (4+) Urine Glucose (NEGATIVE) NEGATIVE Urine Comment CULTURE INDICATED 08/31 2039 Chemistry Plasma Sodium (136 - 145 mmol/L) 133 Plasma Potassium (3.5 - 5.1 mmol/L) 4.4 Plasma Chloride (98 - 107 mmol/L) 95 CO2 (Enzymatic) (21 - 32 mmol/L) 20 BUN (7 - 18 mg/dL) 39 Creatinine (0.6 - 1.3 mg/dL) 2.4 Est GFR ( Amer) (mL/min) 34.55 Est GFR (Non-Af Amer) (mL/min) 28.51 Glucose (70 - 110 mg/dL) 284 Plasma Calcium (8.5 - 10.1 mg/dL) 9.2 Plasma Magnesium (1.8 - 2.4 mg/dL) 2.1 Total Bilirubin (0.0 - 1.0 mg/dL) 2.8 AST (15 - 37 U/L) 405 ALT (12 - 78 U/L) 226 Alkaline Phosphatase (46 - 116 U/L) 85 Creatine Kinase (24 - 260 U/L) 192 Troponin (0.00 - 1.5 ng/mL) 0.16 Total Protein (6.4 - 8.2 g/dL) 7.7 Albumin (3.3 - 5.0 g/dL) 3.9 Amylase (25 - 115 U/L) 31 TSH 3rd Generation (0.30 - 3.74 uIU/mL) 3.646 Coagulation D-Dimer, Quantitative (0.27 - 0.52 ug/mLFEU) 1.15 Hematology WBC (4.5 - 11.5 K/uL) 15.0 RBC (4.50 - 5.90 M/uL) 5.18 Hgb (13.5 - 17.5 gm/dL) 15.0 Hct (41.0 - 53.0 %) 46.1 MCV (80 - 100 fL) 89 MCH (26 - 34 pg) 29 RDW (11.6 - 14.8 %) 15.6 Neut % (Auto) (50 - 75 %) 76.2 Lymph % (Auto) (25 - 40 %) 11.7 [place] % (Auto) (3 - 14 %) 11.7 Eos % (Auto) (0 - 4 %) 0.1 Baso % (Auto) (0 - 2 %) 0.3 Plt Count, EDTA (150 - 400 K/uL) 312 PUBS MCHC (31 - 37 g/dL) 33 Microbiology Date/Time Procedure - Status Source Growth 08/30 2134 Urine Culture - RECD URINE CATH Imaging Chest X-Ray IMPRESSION: 1. Stable mild cardiomegaly with mild CHF 2. CABG Dictated by: BRIANA CHEN MD D: NOVA;08/30/16 2242 Assessment and Plan Problem List 1. Atrial flutter Status Acute Onset Date Unknown Plan -The patient presents with findings of atrial flutter with rapid ventricular response -Cardizem drip, IV Lopressor -anticoagulation for persistent atrial flutter -echocardiogram -TSH within normal limits -monitor 2. CHF (congestive heart failure) Plan -patient with history of CHF -check echocardiogram -continue ARB, nitrates, diuretics, beta abhishek -low salt diet 3. CAD (coronary artery disease) Plan -patient with history of coronary disease -no chest pain with current episode of shortness of breath/atrial flutter -check serial troponin -EKG shows no acute ST-T wave changes -monitor 4. Diabetes mellitus Status Chronic Onset Date Unknown Plan -patient with history of diabetes mellitus -insulin sliding scale -check hemoglobin A1c -before meals/at bedtime blood glucose checks 5. UTI (urinary tract infection) Status Acute Onset Date Unknown Plan -patient with urinalysis suggestive of UTI -Rocephin 1 g IV daily -await urine C&S Current status: Fair, unstable Anticipated discharge date: Anticipated discharge in 2-3 days Anticipated discharge placement: Home Patient care time: Time spent in chart review, patient interview, physical exam, CPOE, and care documentation: 70 minutes Visit to patient today: 2 Complexity of care: High Initial patient evaluation: Emergency department Advanced care plan: Completed, note entered E&M Codes Admission: Inpt-High/[id number]
[2016-08-31] VITALS (18 sets, daily range): BP systolic 96–129; BP diastolic 36–81
--- NOTE | 2016-08-31 07:08 | Progress Note ---
Subjective General ADVANCED CARE PLAN History of Present Illness The patient is a 71-year-old white male with a significant past medical history of gastroesophageal reflux, chronic kidney disease stage III, diabetes mellitus, obstructive sleep apnea, coronary artery disease, hyperlipidemia, CHF, chronic back pain, peripheral arterial disease, colonic polyps, who presented to [facility] emergency department on the day of admission secondary to complaints of shortness of breath of 4 days duration. [facility] ER evaluation was consistent with new onset atrial flutter with rapid ventricular response-150/minute, CHF. Secondary to the above, the patient was admitted by Jaylan Sevilla M.D. for further evaluation and treatment. For other history present illness, past medical history, family history, social history, review of systems, and admission physical examination please see the patient's history and physical examination and ER visit note in the patient's medical record. A discussion was undertaken with the patient regarding previous advance care arrangements/decisions. The following advanced directives were noted by the patient and discussed with me at the time of admission. ADVANCED DIRECTIVES: 1. Living well: No 2. POLST: No 3. CODE STATUS: NO CODE-DNR/DNI 4. [facility]: No 5. Donor card: No The patient has expressed interest in not pursuing any form of resuscitation at this time. She has opted not to pursue intubation/mechanical ventilation, CPR, electrical cardioversion, or life-sustaining efforts involving drugs at the time of cardiopulmonary arrest. The patient's wishes were documented in the chart and orders regarding the patient's wishes entered into the [facility] CPOE system. The "Advance Care Plan Document" was not distributed to patient to discuss with his family. Less than 30 minutes was spent in performing the above tasks and documentation of the patient's advanced care plan.
--- NOTE | 2016-08-31 07:08 | Progress Note ---
Subjective General ADVANCED CARE PLAN History of Present Illness The patient is a 71-year-old white male with a significant past medical history of gastroesophageal reflux, chronic kidney disease stage III, diabetes mellitus, obstructive sleep apnea, coronary artery disease, hyperlipidemia, CHF, chronic back pain, peripheral arterial disease, colonic polyps, who presented to [facility] emergency department on the day of admission secondary to complaints of shortness of breath of 4 days duration. [facility] ER evaluation was consistent with new onset atrial flutter with rapid ventricular response-150/minute, CHF. Secondary to the above, the patient was admitted by Jaylan Sevilla M.D. for further evaluation and treatment. For other history present illness, past medical history, family history, social history, review of systems, and admission physical examination please see the patient's history and physical examination and ER visit note in the patient's medical record. A discussion was undertaken with the patient regarding previous advance care arrangements/decisions. The following advanced directives were noted by the patient and discussed with me at the time of admission. ADVANCED DIRECTIVES: 1. Living well: No 2. POLST: No 3. CODE STATUS: NO CODE-DNR/DNI 4. [facility]: No 5. Donor card: No The patient has expressed interest in not pursuing any form of resuscitation at this time. She has opted not to pursue intubation/mechanical ventilation, CPR, electrical cardioversion, or life-sustaining efforts involving drugs at the time of cardiopulmonary arrest. The patient's wishes were documented in the chart and orders regarding the patient's wishes entered into the [facility] CPOE system. The "Advance Care Plan Document" was not distributed to patient to discuss with his family. Less than 30 minutes was spent in performing the above tasks and documentation of the patient's advanced care plan.
--- NOTE | 2016-08-31 15:17 | Progress Note ---
Subjective General Pt seen and examined. Patient is doing well with no complaints. Patients diltiazem drip was stopped eariler today and has not had any returns to atrial flutter. Patient is otherwise stable. Constitutional Denies: Fever, Chills, Sweats, Weakness, Malaise, Other. Eyes Denies: Pain, Vision Change, Conjunctival Inflammation, Eyelid Inflammation, Redness, Other. Cardiovascular Denies: Chest Pain, Palpitations, Orthopnea, PND, Edema, Light-headedness, Other. Gastrointestinal Denies: Nausea, Vomiting, Abdominal Pain, Diarrhea, Constipation, Melena, Hematochezia, Other. Genitourinary Denies: Dysuria, Frequency, Incontinence, Hematuria, Retention, Other. Musculoskeletal Denies: Neck Pain, Shoulder Pain, Arm Pain, Back Pain, Hand Pain, Leg Pain, Foot Pain, Other. Skin Denies: Rash, Lesions, Jaundice, Bruising, Other. Neurological Denies: Weakness, Numbness, Incoordination, Change in speech, Confusion, Seizures, Other. Physical Exam Vital Signs / I&Os Vital Signs Date Time Temp Pulse Resp B/P Pulse O2 O2 Flow FiO2 Ox Delivery Rate 08/31 1420 66 18 96/54 99 08/31 1300 97.5 65 15 96/36 99 Room Air 0.0 08/31 1221 66 23 105/73 99 Room Air 08/31 1100 65 23 104/64 94 Room Air 0.0 08/31 1000 62 23 99/60 97 Room Air 0.0 08/31 0900 67 22 106/65 95 Nasal 0.0 Cannula 08/31 0812 62 08/31 0800 66 24 110/76 96 0.0 08/31 0712 65 16 0710 97.5 72 28 115/69 96 Nasal 1.0 Cannula 08/31 0600 56 20 101/70 96 Nasal 1.0 Cannula 08/31 0542 92 Nasal 1.0 Cannula 08/31 0500 118 25 116/78 96 Nasal 2.0 Cannula 08/31 0445 149 26 112/80 97 Nasal 2.0 Cannula 08/31 0426 97.5 149 103/80 95 Nasal 2.0 Cannula 08/31 0315 108 20 129/81 95 Nasal 2.0 Cannula 08/31 0222 97.9 82 20 116/68 97 Nasal 2.0 Cannula 08/31 0154 2.0 04/16 0115 Nasal 2.0 Cannula 08/31 0110 93 16 108/65 95 Room Air 2.0 General Appearance Alert, Oriented X3, No acute distress HEENT Atraumatic, PERRLA, Moist mucous membranes Lungs Clear to auscultation, Normal air movement Neck Supple, No JVD, No thyromegaly, No lymphadenopathy, 2+ carotid pulse wo bruit Cardiovascular - irregularly irregular rhythm - no palpitations - no murmurs Abdomen Soft, No tenderness, No guarding Extremities No clubbing, No edema, Normal pulses, No tenderness, Strength = upper ext's, Strength = lower ext's Skin No Breakdown, No Significant Lesions Neurological Normal speech, Normal tone, Sensation intact, Cranial nerves intact , Strength 5/5 x4 ext's, No lateralizing signs Psych/Mental Status Mood normal LAB Results Laboratory Tests 08/30 Chemistry Plasma Sodium (136 - 145 mmol/L) 133 Plasma Potassium (3.5 - 5.1 mmol/L) 4.4 Plasma Chloride (98 - 107 mmol/L) 95 CO2 (Enzymatic) (21 - 32 mmol/L) 20 BUN (7 - 18 mg/dL) 39 Creatinine (0.6 - 1.3 mg/dL) 2.4 Est GFR ( Amer) (mL/min) 34.55 Est GFR (Non-Af Amer) (mL/min) 28.51 Glucose (70 - 110 mg/dL) 284 Plasma Calcium (8.5 - 10.1 mg/dL) 9.2 Plasma Magnesium (1.8 - 2.4 mg/dL) 2.1 Total Bilirubin (0.0 - 1.0 mg/dL) 2.8 AST (15 - 37 U/L) 405 ALT (12 - 78 U/L) 226 Alkaline Phosphatase (46 - 116 U/L) 85 Creatine Kinase (24 - 260 U/L) 192 Troponin (0.00 - 1.5 ng/mL) 0.16 B-Natriuretic Peptide (5 - 100 pg/ml) 2420 Total Protein (6.4 - 8.2 g/dL) 7.7 Albumin (3.3 - 5.0 g/dL) 3.9 Amylase (25 - 115 U/L) 31 Cancelled TSH 3rd Generation (0.30 - 3.74 uIU/mL) 3.646 Cancelled Coagulation D-Dimer, Quantitative (0.27 - 0.52 ug/mLFEU) 1.15 Hematology WBC (4.5 - 11.5 K/uL) 15.0 RBC (4.50 - 5.90 M/uL) 5.18 Hgb (13.5 - 17.5 gm/dL) 15.0 Hct (41.0 - 53.0 %) 46.1 MCV (80 - 100 fL) 89 MCH (26 - 34 pg) 29 RDW (11.6 - 14.8 %) 15.6 Neut % (Auto) (50 - 75 %) 76.2 Lymph % (Auto) (25 - 40 %) 11.7 [place] % (Auto) (3 - 14 %) 11.7 Eos % (Auto) (0 - 4 %) 0.1 Baso % (Auto) (0 - 2 %) 0.3 Plt Count, EDTA (150 - 400 K/uL) 312 PUBS MCHC (31 - 37 g/dL) 33 08/30 08/31 08/31 08/31 2135 0440 0440 1214 Chemistry Plasma Sodium (136 - 145 mmol/L) 131 Plasma Potassium (3.5 - 5.1 mmol/L) 4.0 Plasma Chloride (98 - 107 mmol/L) 95 CO2 (Enzymatic) (21 - 32 mmol/L) 21 BUN (7 - 18 mg/dL) 44 Creatinine (0.6 - 1.3 mg/dL) 2.1 Est GFR ( Amer) (mL/min) 40.30 Est GFR (Non-Af Amer) (mL/min) 33.25 Glucose (70 - 110 mg/dL) 265 Plasma Calcium (8.5 - 10.1 mg/dL) 8.7 Troponin (0.00 - 1.5 ng/mL) 0.14 0.13 Hematology WBC (4.5 - 11.5 K/uL) 11.6 RBC (4.50 - 5.90 M/uL) 4.59 Hgb (13.5 - 17.5 gm/dL) 13.2 Hct (41.0 - 53.0 %) 40.7 MCV (80 - 100 fL) 89 MCH (26 - 34 pg) 29 RDW (11.6 - 14.8 %) 15.3 Neut % (Auto) (50 - 75 %) 69 Lymph % (Auto) (25 - 40 %) 16 [place] % (Auto) (3 - 14 %) 12 Eos % (Auto) (0 - 4 %) 0 Baso % (Auto) (0 - 2 %) 1 Band Neutrophils % (0 - 8 %) 2 Metamyelocytes % (0 - 1 %) 0 Myelocytes (0 - 1 %) 0 Other Cell Type 0 Plt Count, EDTA (150 - 400 K/uL) 243 Target Cells 1+ PUBS MCHC (31 - 37 g/dL) 32 Toxicology Urine Opiates Screen (NEGATIVE) NEGATIVE Urine Methadone Screen (NEGATIVE) NEGATIVE Ur Barbiturates Screen (NEGATIVE) NEGATIVE U Amphetamin/Meth Scrn (NEGATIVE) NEGATIVE MDMA (Ecstasy) Screen (NEGATIVE) POSITIVE U Benzodiazepines Scrn (NEGATIVE) NEGATIVE Urine Cocaine Screen (NEGATIVE) NEGATIVE U Cannabinoids Screen (NEGATIVE) NEGATIVE Urines Urine Color YELLOW Urine Appearance CLEAR Urine pH (5.0 - 8.0) 5.0 Ur Specific [place] (1.010 - 1.030) >= 1.030 Urine Protein (NEGATIVE) 2+ Urine Ketones (NEGATIVE) NEGATIVE Urine Blood (NEGATIVE) NEGATIVE Urine Nitrite (NEGATIVE) NEGATIVE Urine Bilirubin (NEGATIVE) 2+ Urine Urobilinogen (0.2 - 1.0 EU/dL) 1.0 Ur Leukocyte Esterase (NEGATIVE) NEGATIVE Urine RBC (0 - 1 rbc/hpf) 0-1 Urine WBC (0 - 1 wbc/hpf) 0-1 Ur Epithelial Cells (0 - 5 EPI/hpf) 0-1 Urine Bacteria (NONE SEEN) MANY (4+) Urine Glucose (NEGATIVE) NEGATIVE Urine Comment CULTURE INDICATED Microbiology Date/Time Procedure - Status Source Growth 08/31 0400 MRSA Screen - RECD NASAL 08/30 2135 Urine Culture - RES URINE CATH Assessment and Plan Problem List 1. Atrial flutter with rapid ventricular response Plan -The patient presents with findings of atrial flutter with rapid ventricular response - Patient was originally on lopressor with cardizem drip - currently patient is rate controlled. - will continue with lopressor bid for the time being - will additionally start diltiazem 30 mg bid if tachycardia becomes an issues - will keep patient on telemetry - will follow up on echocardiogram tomorrow 2. CHF (congestive heart failure) Plan -patient with history of CHF -check echocardiogram -continue ARB, nitrates, diuretics, beta abhishek -low salt diet 3. CAD (coronary artery disease) Plan -patient with history of coronary disease -no chest pain with current episode of shortness of breath/atrial flutter -troponins have been negative -EKG shows no acute ST-T wave changes -monitor 4. Diabetes mellitus Status Chronic Onset Date Unknown Plan -patient with history of diabetes mellitus -insulin sliding scale -will order hba1c -before meals/at bedtime blood glucose checks 5. UTI (urinary tract infection) Status Acute Onset Date Unknown Plan -patient with urinalysis suggestive of UTI -Rocephin 1 g IV daily -await urine C&S
[2016-09-01] VITALS (10 sets, daily range): BP systolic 34–199; BP diastolic 16–74
--- NOTE | 2016-09-01 15:14 | DIAGNOSTIC IMAGING REPORT ---
REFERRING PHYSICIAN/PROVIDER: Jaylan Sevilla MD CONSULTING NAIL PROFESSIONAL: Dallas Rasheed MD INDICATION: atrial flutter, CHF Procedure: A two-dimensional transthoracic echocardiogram with color flow and Doppler was performed. Images from the parasternal window were difficult to obtain and are suboptimal in quality. Most of the acoustic windows were suboptimal, but the best imaging was obtained from the subcostal window. The patient was in normal sinus rhythm during the exam. Left Ventricle: The left ventricle is normal in size. There is mild concentric left ventricular hypertrophy. Left ventricular systolic function is severely reduced. The ejection fraction is estimated to be 20-25%. There is moderate to severe global hypokinesis of the left ventricle. Right Ventricle: The right ventricle is mildly dilated. Right ventricular systolic function is severely reduced. Atria: The left atrium is moderately dilated. The right atrium is mildly dilated. The interatrial septum is intact with no evidence for an atrial septal defect. Mitral Valve: The mitral valve is normal in structure but abnormal in function. The mitral valve leaflets are mildly calcified. There is mild to moderate mitral regurgitation. Aortic Valve: There is mild aortic valve sclerosis. The aortic valve is trileaflet. There is no hemodynamically significant valvular aortic stenosis. Tricuspid Valve: The tricuspid valve leaflets are thin and pliable. There is mild tricuspid regurgitation. The right ventricular systolic pressure is estimated at 46 mmHg assuming a right atrial pressure of 15 mm Hg. Pulmonic Valve: The pulmonic valve is normal in structure and function. There is a trace or physiologic amount of pulmonic regurgitation. There is no other significant valvular heart disease. Great Vessels: The aortic root is mildly dilated. The ascending aorta could not be visualized. The IVC is dilated (diameter is greater than 2.1 cm) and it collapses less than 50% with a sniff. This suggests a high right atrial pressure of 15 mm Hg. Pericardium/ Pleura There is no pericardial effusion Impression: The left ventricle is normal in size. There is mild concentric left ventricular hypertrophy. Left ventricular systolic function is severely reduced. The ejection fraction is estimated to be 20-25%. There is moderate to severe global hypokinesis of the left ventricle. The right ventricle is mildly dilated. Right ventricular systolic function is severely reduced. The right ventricular systolic pressure is estimated at 46 mmHg assuming a right atrial pressure of 15 mm Hg. The left atrium is moderately dilated. The right atrium is mildly dilated. There is mild to moderate mitral regurgitation. There is mild aortic valve sclerosis. There is no hemodynamically significant valvular aortic stenosis. There is mild tricuspid regurgitation. There is no other significant valvular heart disease. The aortic root is mildly dilated.
--- NOTE | 2016-09-01 18:05 | Progress Note ---
Subjective General Patient seen and examined. Patient has been in and out of sleep all day. Patient in the am was lucid however towards the end of the day patient was struggling to stay awake and maintain alertness. Patient otherwise was hemodynamically stable. Physical Exam Vital Signs / I&Os Vital Signs Date Time Temp Pulse Resp B/P Pulse O2 O2 Flow FiO2 Ox Delivery Rate 09/02 1801 97.7 59 16 89/45 97 Nasal 2.0 Cannula 09/02 1441 97.7 65 18 102/57 99 09/02 1100 97.5 68 18 97/56 97 Room Air 2.0 09/02 0945 Room Air 09/02 0816 2.0 09/02 0813 61 09/02 0732 97.9 59 18 94/50 94 Nasal 0.5 Cannula 09/02 0158 97.0 65 16 93/58 92 Nasal 0.5 Cannula 09/01 2305 94/52 09/01 2231 97.3 71 16 91/48 98 Nasal 0.5 Cannula 09/01 2228 97.7 63 16 100/55 100 Nasal 0.5 Cannula 09/01 2200 97.7 63 16 86/55 98 Nasal 0.5 Cannula 09/01 2122 70 20 92/56 100 Nasal 0.5 Cannula 09/01 2115 68 09/01 1956 1.5 09/01 1941 97.7 69 93/51 Nasal 1.0 Cannula 09/01 1935 1.0 I&O 09/01 0800 09/01 1600 09/02 0000 Intake Total 760 333 9044 Output Total 475 350 350 Balance 365 -230 650 General Appearance Alert, Oriented X3, No acute distress HEENT Atraumatic, Moist mucous membranes Lungs Clear to auscultation, Normal air movement Neck Supple, No masses Cardiovascular - irregularly irregular rhythm Abdomen Soft, No tenderness Extremities No clubbing, No edema, Normal pulses Skin No Breakdown Neurological Normal speech, Normal tone, Sensation intact, Cranial nerves intact , No lateralizing signs Psych/Mental Status Confused LAB Results Laboratory Tests 09/02 0435 Chemistry Plasma Sodium (136 - 145 mmol/L) 139 Plasma Potassium (3.5 - 5.1 mmol/L) 3.7 Plasma Chloride (98 - 107 mmol/L) 103 CO2 (Enzymatic) (21 - 32 mmol/L) 26 BUN (7 - 18 mg/dL) 45 Creatinine (0.6 - 1.3 mg/dL) 1.7 Est GFR ( Amer) (mL/min) 51.44 Est GFR (Non-Af Amer) (mL/min) 42.44 Glucose (70 - 110 mg/dL) 74 Plasma Calcium (8.5 - 10.1 mg/dL) 8.4 Total Bilirubin (0.0 - 1.0 mg/dL) 0.6 AST (15 - 37 U/L) 117 ALT (12 - 78 U/L) 176 Alkaline Phosphatase (46 - 116 U/L) 71 Total Protein (6.4 - 8.2 g/dL) 5.7 Albumin (3.3 - 5.0 g/dL) 2.7 Hematology WBC (4.5 - 11.5 K/uL) 8.9 RBC (4.50 - 5.90 M/uL) 4.49 Hgb (13.5 - 17.5 gm/dL) 12.7 Hct (41.0 - 53.0 %) 39.7 MCV (80 - 100 fL) 88 MCH (26 - 34 pg) 28 RDW (11.6 - 14.8 %) 15.7 Neut % (Auto) (50 - 75 %) 71.4 Lymph % (Auto) (25 - 40 %) 13.7 [place] % (Auto) (3 - 14 %) 13.0 Eos % (Auto) (0 - 4 %) 1.7 Baso % (Auto) (0 - 2 %) 0.2 Plt Count, EDTA (150 - 400 K/uL) 230 PUBS MCHC (31 - 37 g/dL) 32 Assessment and Plan Problem List 1. Atrial flutter with rapid ventricular response Plan - currently patient is rate controlled with beta abhishek - will hold off diltiazem for the time being - will start anti- coagulation - patient started on xarelto will look if his insurance covers it - will continue on telemery - will follow up on echo report however preliminary reports 20% 2. Diabetes 1.5, managed as type 2 Plan - will continue to trend blood sugars - sliding scale coverage 3. CHF (congestive heart failure) Plan - will obtain echocardiogram - last bnp was elevated - will await report
--- NOTE | 2016-09-01 23:11 | ED MED RECONCILIATION SUMMARY ---
Patient: VENUS RODRIGUEZ Medication Reconciliation Report [facility] VisitID: [id number] [place] [address] 71y, M Registration Date/Time: 08/30/2016 Weight: 94.8 kg Height/Length: 74 in. BMI: 26.9 ALLERGIES: LIsinopril, MetFORMIN HCl, Simvastatin The patient's Home Medications are listed below: THE FOLLOWING MEDICATIONS NEED TO BE RECONCILED: Maria Luisa-Mason Oral ASA Oral 81mg, day Atorvastatin Calcium Oral (80 mg) 1 tablet, at bedtime BuPROPion HBr Oral 2 tab day Carvedilol Phosphate ER Oral 12.5mg, 2 x daily Combivent Respimat Inhalation (20-100 mcg/act) one puff, 4 x daily Fenofibrate Oral 160 mg, q day Furosemide Oral 40 mg, 2x a day Gabapentin Oral 300 mg, 3x a day HumaLOG Subcutaneous 20-25 units, before meals HydrALAZINE HCl Oral (25 mg) Hydrocodone-Acetaminophen Oral 5 mg Insulin, lantis 25units bid, novalog 20units with each meal Irbesartan Oral 300 mg, daily Isosorbide Mononitrate ER Oral 30mg x 3 tabs, 3 x diaily Isosorbide Mononitrate Oral (20 mg) 1 tablet, tid Lantus Subcutaneous 30 units, 2x a day MetFORMIN HCl Oral 500 mg, 2x a day Metoprolol Tartrate Oral 25 mg, 2 x daily Nitroglycerin Sublingual 0.4 mg NTG 0.4mg Omeprazole Oral 20 mg, daily Sertraline HCl Oral (100 mg) 1-1/2 tablets, daily Spiriva HandiHaler Inhalation 2puffs, 2 x daily Spironolactone Oral 25 mg, daily Tamsulosin HCl Oral 0.4 mg, daily Zolpidem Tartrate Oral 5 mg, at bedtime The source(s) of the original Home Medication information: patient The following Medications were given to the patient in the Emergency Department: NITROGLYCERIN PASTE [TOPICAL] Topical 1.5 in., administered: 08/30/2016 9:16:00 PM Diltiazem [IVP] IVP 15 mg, administered: 08/30/2016 9:17:00 PM Cardizem [IVP] IVP 25 mg, administered: 08/30/2016 9:54:00 PM Adenosine [IVP] IVP 6 mg, administered: 08/30/2016 10:16:00 PM Adenosine [IVP] IVP 12 mg, administered: 08/30/2016 10:22:00 PM Diltiazem [IV Drip] Drip IV bolus 0, then 15 mg 15 mg/hr, administered: 08/30/2016 10:59:00 PM Metoprolol [IVP] IVP 5 mg, administered: 08/30/2016 11:01:00 PM Metoprolol [IVP] IVP 5 mg, administered: 08/30/2016 11:10:00 PM The following Medications were prescribed to the patient: None.
--- NOTE | 2016-09-01 23:11 | ED MED RECONCILIATION SUMMARY ---
Patient: VENUS RODRIGUEZ Medication Reconciliation Report [facility] VisitID: [id number] [place] [address] 71y, M Registration Date/Time: 08/30/2016 Weight: 94.8 kg Height/Length: 74 in. BMI: 26.9 ALLERGIES: LIsinopril, MetFORMIN HCl, Simvastatin The patient's Home Medications are listed below: THE FOLLOWING MEDICATIONS NEED TO BE RECONCILED: Maria Luisa-Rupert Oral ASA Oral 81mg, day Atorvastatin Calcium Oral (80 mg) 1 tablet, at bedtime BuPROPion HBr Oral 2 tab day Carvedilol Phosphate ER Oral 12.5mg, 2 x daily Combivent Respimat Inhalation (20-100 mcg/act) one puff, 4 x daily Fenofibrate Oral 160 mg, q day Furosemide Oral 40 mg, 2x a day Gabapentin Oral 300 mg, 3x a day HumaLOG Subcutaneous 20-25 units, before meals HydrALAZINE HCl Oral (25 mg) Hydrocodone-Acetaminophen Oral 5 mg Insulin, lantis 25units bid, novalog 20units with each meal Irbesartan Oral 300 mg, daily Isosorbide Mononitrate ER Oral 30mg x 3 tabs, 3 x diaily Isosorbide Mononitrate Oral (20 mg) 1 tablet, tid Lantus Subcutaneous 30 units, 2x a day MetFORMIN HCl Oral 500 mg, 2x a day Metoprolol Tartrate Oral 25 mg, 2 x daily Nitroglycerin Sublingual 0.4 mg NTG 0.4mg Omeprazole Oral 20 mg, daily Sertraline HCl Oral (100 mg) 1-1/2 tablets, daily Spiriva HandiHaler Inhalation 2puffs, 2 x daily Spironolactone Oral 25 mg, daily Tamsulosin HCl Oral 0.4 mg, daily Zolpidem Tartrate Oral 5 mg, at bedtime The source(s) of the original Home Medication information: patient The following Medications were given to the patient in the Emergency Department: NITROGLYCERIN PASTE [TOPICAL] Topical 1.5 in., administered: 08/30/2016 9:16:00 PM Diltiazem [IVP] IVP 15 mg, administered: 08/30/2016 9:17:00 PM Cardizem [IVP] IVP 25 mg, administered: 08/30/2016 9:54:00 PM Adenosine [IVP] IVP 6 mg, administered: 08/30/2016 10:16:00 PM Adenosine [IVP] IVP 12 mg, administered: 08/30/2016 10:22:00 PM Diltiazem [IV Drip] Drip IV bolus 0, then 15 mg 15 mg/hr, administered: 08/30/2016 10:59:00 PM Metoprolol [IVP] IVP 5 mg, administered: 08/30/2016 11:01:00 PM Metoprolol [IVP] IVP 5 mg, administered: 08/30/2016 11:10:00 PM The following Medications were prescribed to the patient: None.
--- NOTE | 2016-09-01 23:11 | ED MAR SUMMARY ---
..... Medication Administration Record Located Within [facility] [address] [place] [place] [address] Patient: VENUS RODRIGUEZ Visit ID: [id number] 71y, M Weight: 94.8 kg Height/Length: 74 in BMI: 26.9 ALLERGIES: LIsinopril, MetFORMIN HCl, Simvastatin Given 21:16 08/30/2016 Nanci Solis R.N. Medication Administered: NITROGLYCERIN PASTE [TOPICAL], Dose: 1.5 in. Topical. Medication Ordered: NitroGLYCERIN Paste Topical 1.5 in. (NOW, to ). Given 21:17 08/30/2016 Nanci Solis R.N. Medication Administered: DILTIAZEM [IVP], Dose: 15 mg IVP over 3 minute(s), Site: #1 left AC. Medication Ordered: Diltiazem IV 15 mg (NOW). Given 21:54 08/30/2016 Nanci Solis R.N. Medication Administered: CARDIZEM [IVP], Dose: 25 mg IVP over 2 minute(s), Site: #1 left AC. Medication Ordered: Cardizem IV 25 mg (NOW). Given 22:16 08/30/2016 Nanci Solis R.N. Medication Administered: ADENOSINE [IVP], Dose: 6 mg IVP over 1 second(s), Site: #1 left AC. Medication Ordered: Adenosine IV 6 mg (NOW). Given 22:22 08/30/2016 Nanci Solis R.N. Medication Administered: ADENOSINE [IVP], Dose: 12 mg IVP over 1 second(s), Site: #2 right AC. Medication Ordered: Adenosine IV 6 mg (NOW). Start 22:59 08/30/2016 Nanci Solis R.N., Continued Upon Admission 00:25 08/31/2016 Saad Gaviria R.N. Medication Administered: DILTIAZEM [IV DRIP], Dose: 15 mg Drip IV over 4 hour(s), Rate: 15 mg/hr, Dispensed: 125 mL bag, Site: #2 right AC. Medication Ordered: Diltiazem Drip IV : initial bolus 15 mg, then 15 mg/hr for 4h (NOW); Routine. Given 23:01 08/30/2016 Nanci Solis, RThierryN. Medication Administered: METOPROLOL [IVP] (METOPROLOL TARTRATE), Dose: 5 mg IVP over 1 minute(s), Site: #1 left AC. Medication Ordered: Metoprolol IV 5 mg (NOW). Given 23:10 08/30/2016 Nanci Solis, RThierryN. Medication Administered: METOPROLOL [IVP] (METOPROLOL TARTRATE), Dose: 5 mg IVP over 1 minute(s), Site: #1 left AC. Medication Ordered: Metoprolol IV 5 mg (NOW).
--- NOTE | 2016-09-01 23:11 | ED DISCHARGE INSTRUCTIONS ---
Patient: VENUS RODRIGUEZ General Instructions [facility] VisitID: [id number] [place] [address] 71y, M Registration Date/Time: 08/30/2016 New onset atrial flutter. The patient has one or more high risk factors and/or two or more moderate risk factors for thromboembolism. The patient is prescribed warfarin or another FDA approved anticoagulant. Moderate chronic renal insufficiency. Indeterminant troponin. ADDITIONAL INFORMATION Atrial Flutter Atrial flutteris a condition where the heart beats at a very rapid rate. It is due to a disturbance in the electrical pathways of the heart. It is a sign of heart disease or other health problems affecting the heart. The most common symptom ispalpitations. This is the feeling that your heart is fluttering or beating fast or hard. When the heart beats too fast, it does not pump blood very well. This can cause other symptoms such as anxiety, fatigue, shortness of breath, chest pain, dizziness or fainting. If this is your first episode of atrial flutter, and you have no heart or lung disease, you may never have another episode again. But in most cases, atrial flutter comes and goes, lasting from a few hours to a couple of days. Sometimes the atrial flutter does not ever go away and becomes chronic. Atrial flutter may be caused by disease of the heart or other conditions in the body that affect the heart: Coronary artery disease (arteriosclerosis) High blood pressure Disease of the heart valves Enlarged heart Atrial flutter can occur without heart disease due to: Overactive thyroid (hyperthyroid) Chronic lung disease (COPD, emphysema, bronchitis) Heavy alcohol use Cardiac stimulants (cocaine, amphetamines, diet pills, certain decongestant cold medicines, caffeine or nicotine) Infection Treating or removing these causes will improve success in the treatment of atrial flutter and reduce your risk of recurrence. Atrial flutter can alternate back and forth with another abnormal rhythm called atrial fibrillation. The risk of stroke is higher with these conditions. Proper treatment can reduce your risk. Home Care: Resume your usual activities as soon as you are feeling back to normal. If you smoke, stop smoking. Contact your doctor or a local stop-smoking program for help. Avoid stimulants (cocaine, amphetamines, diet pills, certain decongestant cold medicines, caffeine, or nicotine). If medicine is prescribed to prevent recurrence of atrial fibrillation, take it exactly as directed. Some medicines must be taken daily, not just when you have symptoms, in order to be effective. If you were prescribed warfarin (Coumadin) to reduce stroke risk, have your blood tested on a regular basis as advised by your doctor. This will ensure that the dose is correct for you. Follow Up With Your Doctor Or As Advised By Our Staff. Get Prompt Medical Attention If Any Of The Following Occur: Increasing shortness of breath Swellingof the legs Unexpected weight gain Chest pain or palpitations (the sense that your heart is fluttering, beating fast or hard) Fever of 100.4F (38C) or higher, or as directed by your healthcare provider Cough with dark-colored or bloody sputum (mucus) Pain, redness, or swelling in one leg Signs of stroke: Weakness or numbness of an arm or leg or one side of the face Difficulty with speech or vision Extreme drowsiness, confusion, dizziness or fainting You have been given the following additional information: Atrial Flutter (Electronically signed by Joshua Solorzano MD 09/01/2016 23:11)
--- NOTE | 2016-09-01 23:11 | ED MAR SUMMARY ---
..... Medication Administration Record [facility] [address] [place] [address] Patient: VENUS RODRIGUEZ Visit ID: [id number] 71y, M Weight: 94.8 kg Height/Length: 74 in BMI: 26.9 ALLERGIES: LIsinopril, MetFORMIN HCl, Simvastatin Given 21:16 08/30/2016 Nanci Solis R.N. Medication Administered: NITROGLYCERIN PASTE [TOPICAL], Dose: 1.5 in. Topical. Medication Ordered: NitroGLYCERIN Paste Topical 1.5 in. (NOW, to ). Given 21:17 08/30/2016 Nanci Solis R.N. Medication Administered: DILTIAZEM [IVP], Dose: 15 mg IVP over 3 minute(s), Site: #1 left AC. Medication Ordered: Diltiazem IV 15 mg (NOW). Given 21:54 08/30/2016 Nanci Solis R.N. Medication Administered: CARDIZEM [IVP], Dose: 25 mg IVP over 2 minute(s), Site: #1 left AC. Medication Ordered: Cardizem IV 25 mg (NOW). Given 22:16 08/30/2016 Nanci Solis R.N. Medication Administered: ADENOSINE [IVP], Dose: 6 mg IVP over 1 second(s), Site: #1 left AC. Medication Ordered: Adenosine IV 6 mg (NOW). Given 22:22 08/30/2016 Nanci Solis R.N. Medication Administered: ADENOSINE [IVP], Dose: 12 mg IVP over 1 second(s), Site: #2 right AC. Medication Ordered: Adenosine IV 6 mg (NOW). Start 22:59 08/30/2016 Nanci Solis R.N., Continued Upon Admission 00:25 08/31/2016 Saad Gaviria R.N. Medication Administered: DILTIAZEM [IV DRIP], Dose: 15 mg Drip IV over 4 hour(s), Rate: 15 mg/hr, Dispensed: 125 mL bag, Site: #2 right AC. Medication Ordered: Diltiazem Drip IV : initial bolus 15 mg, then 15 mg/hr for 4h (NOW); Routine. Given 23:01 08/30/2016 Nanci Solis, RThierryN. Medication Administered: METOPROLOL [IVP] (METOPROLOL TARTRATE), Dose: 5 mg IVP over 1 minute(s), Site: #1 left AC. Medication Ordered: Metoprolol IV 5 mg (NOW). Given 23:10 08/30/2016 Nanci Solis, RThierryN. Medication Administered: METOPROLOL [IVP] (METOPROLOL TARTRATE), Dose: 5 mg IVP over 1 minute(s), Site: #1 left AC. Medication Ordered: Metoprolol IV 5 mg (NOW).
[2016-09-02 01:58] VITALS: BP 93/58
[2016-09-02 07:32] VITALS: BP 94/50
[2016-09-02 11:00] VITALS: BP 97/56
[2016-09-02 14:41] VITALS: BP 102/57
[2016-09-02 18:01] VITALS: BP 89/45
--- NOTE | 2016-09-02 19:05 | Progress Note ---
Subjective General Patient seen and examined. Patient is currently much improved compared to yesterday. Patient is more responsive and able to carry a coversation. Constitutional Denies: Fever, Chills, Sweats, Weakness, Malaise, Other. ENT Denies: Ear Pain, Ear Discharge, Nose Pain, Nasal Discharge, Nasal Congestion, Mouth Pain, Mouth Swelling, Throat Pain, Throat Swelling, Other. Respiratory Denies: Cough, Dry, SOB w/exertion, Wheezing, Hemoptysis, Pleuritic Pain, Sputum , Other. Cardiovascular Denies: Chest Pain, Palpitations, Orthopnea, PND, Edema, Light-headedness, Other. Gastrointestinal Denies: Nausea, Vomiting, Abdominal Pain, Diarrhea, Constipation, Melena, Hematochezia, Other. Genitourinary Denies: Dysuria, Frequency, Incontinence, Hematuria, Retention, Other. Musculoskeletal Denies: Neck Pain, Shoulder Pain, Arm Pain, Back Pain, Hand Pain, Leg Pain, Foot Pain, Other. Skin Denies: Rash, Lesions, Jaundice, Bruising, Other. Neurological Denies: Weakness, Numbness, Incoordination, Change in speech, Confusion, Seizures, Other. Physical Exam Vital Signs / I&Os Vital Signs Date Time Temp Pulse Resp B/P Pulse O2 O2 Flow FiO2 Ox Delivery Rate 09/02 1801 97.7 59 16 89/45 97 Nasal 2.0 Cannula 09/02 1441 97.7 65 18 102/57 99 09/02 1100 97.5 68 18 97/56 97 Room Air 2.0 09/02 0945 Room Air 09/02 0816 2.0 09/02 0813 61 09/02 0732 97.9 59 18 94/50 94 Nasal 0.5 Cannula 09/02 0158 97.0 65 16 93/58 92 Nasal 0.5 Cannula 09/01 2305 94/52 09/01 2231 97.3 71 16 91/48 98 Nasal 0.5 Cannula 09/01 2228 97.7 63 16 100/55 100 Nasal 0.5 Cannula 09/01 2200 97.7 63 16 86/55 98 Nasal 0.5 Cannula 09/01 2122 70 20 92/56 100 Nasal 0.5 Cannula 09/01 2115 68 09/01 1956 1.5 09/01 1941 97.7 69 93/51 Nasal 1.0 Cannula 09/01 1935 1.0 I&O 04/17 0800 09/01 1600 09/02 0000 Intake Total 209 812 3786 Output Total 475 350 350 Balance 365 -230 650 General Appearance Alert, Oriented X3, No acute distress HEENT Atraumatic, PERRLA, Moist mucous membranes Lungs Clear to auscultation, Normal air movement Cardiovascular - irregularly irregular rhythm - no palpitations - no edema - no chest pain Abdomen Soft, No tenderness, No guarding Extremities No edema, Normal pulses, No tenderness Neurological Normal speech, Normal tone, Sensation intact Psych/Mental Status Mood normal LAB Results Laboratory Tests 09/02 0435 Chemistry Plasma Sodium (136 - 145 mmol/L) 139 Plasma Potassium (3.5 - 5.1 mmol/L) 3.7 Plasma Chloride (98 - 107 mmol/L) 103 CO2 (Enzymatic) (21 - 32 mmol/L) 26 BUN (7 - 18 mg/dL) 45 Creatinine (0.6 - 1.3 mg/dL) 1.7 Est GFR ( Amer) (mL/min) 51.44 Est GFR (Non-Af Amer) (mL/min) 42.44 Glucose (70 - 110 mg/dL) 74 Plasma Calcium (8.5 - 10.1 mg/dL) 8.4 Total Bilirubin (0.0 - 1.0 mg/dL) 0.6 AST (15 - 37 U/L) 117 ALT (12 - 78 U/L) 176 Alkaline Phosphatase (46 - 116 U/L) 71 Total Protein (6.4 - 8.2 g/dL) 5.7 Albumin (3.3 - 5.0 g/dL) 2.7 Hematology WBC (4.5 - 11.5 K/uL) 8.9 RBC (4.50 - 5.90 M/uL) 4.49 Hgb (13.5 - 17.5 gm/dL) 12.7 Hct (41.0 - 53.0 %) 39.7 MCV (80 - 100 fL) 88 MCH (26 - 34 pg) 28 RDW (11.6 - 14.8 %) 15.7 Neut % (Auto) (50 - 75 %) 71.4 Lymph % (Auto) (25 - 40 %) 13.7 [place] % (Auto) (3 - 14 %) 13.0 Eos % (Auto) (0 - 4 %) 1.7 Baso % (Auto) (0 - 2 %) 0.2 Plt Count, EDTA (150 - 400 K/uL) 230 PUBS MCHC (31 - 37 g/dL) 32 Assessment and Plan Problem List 1. Atrial flutter with rapid ventricular response Plan - currently rate controlled - when beta abhishek was held patients heart rate went into the 120s - will continue with beta abhishek control and hold diltiazem - patient has evidence of sever heart failure with an ejection fraction of 20% - will have interior specialist see the patient - no evidence of chest pain 2. Diabetes mellitus Status Chronic Onset Date Unknown Plan - will continue with sliding scale coverage - blood sugars have been appropriate - will continue to monitor 3. CHF (congestive heart failure) Plan - evidence of significantly depression ejection fraction - ejection fraction is 20-25% - can not initiate goal directed therapy due to intolerance of the blood pressure - will consult cardiology
[2016-09-02 21:18] VITALS: BP 113/59
[2016-09-03] VITALS (12 sets, daily range): BP systolic 109–127; BP diastolic 50–72
--- NOTE | 2016-09-03 06:37 | Progress Note ---
Subjective General Note Date: September 03, 2016 Admission Date: August 30, 2016 Hospital Day: 5 PCP: Nate Oseguera M.D. Status: Inpatient Advanced Directive: NO CODE Room: 305 Brief History: The patient is a 71-year-old white male with a significant past medical history of gastroesophageal reflux, chronic kidney disease stage III, diabetes mellitus, obstructive sleep apnea, coronary artery disease, hyperlipidemia, CHF, chronic back pain, peripheral arterial disease, colonic polyps, who presented to [facility] emergency department on the day of admission secondary to complaints of shortness of breath of 4 days duration. [facility] ER evaluation was consistent with new onset atrial flutter with rapid ventricular response-150/minute, CHF. Secondary to the above, the patient was admitted by Jaylan Sevilla M.D. for further evaluation and treatment. For other history present illness, past medical history, family history, social history, review of systems, and admission physical examination please see the patient's history and physical examination and ER visit note in the patient's medical record. Subjective: The patient states he is doing somewhat better today. No specific complaints. Shortness of breath improved Patient requests: None Medications and Allergies Medications Current Medications Sig/Kamila Start time Last Medication Dose Route Stop Time Status Admin Furosemide 20 MG DAILY 09/03 09 AC PO Insulin Glargine 30 UNITS QAM 09/03 09 AC SC Losartan Potassium 25 MG BID 09/02 2100 AC 09/02 PO 2116 Warfarin Sodium 5 MG DAILY@1400 09/02 1945 AC 09/02 PO 2116 Dextrose/Sodium 1,000 ML ASDIRECTED 09/02 1830 AC 09/03 Chloride IV 0521 Diltiazem HCl 30 MG BID 08/31 2100 AC 09/02 PO 2116 Atorvastatin Calcium 80 MG QPM 08/31 1800 AC 09/01 PO 1713 Aspirin 81 MG DAILY 08/31 09 AC 09/02 PO 0813 Carvedilol 12.5 MG Q12HR 08/31 09 AC 09/02 PO 2116 Tamsulosin HCl 0.4 MG DAILY 08/31 09 AC 09/02 PO 08 Insulin Human Lispro See Dose ACHS 08/31 0730 AC 09/01 Insts (1) SC 1125 Gabapentin 300 MG TID 08/31 06 AC 09/03 PO 0521 Pantoprazole Sodium 40 MG DAILY@0600 08/31 0600 AC 09/03 IV 0520 Albuterol/Ipratropium 3 ML RTQ6H 08/31 0200 AC 09/03 IN 0132 Al Hydrox/Mg Hydrox/ 15 ML Q1H PRN 08/31 14 AC Simethicone PO Albuterol Sulfate 2.5 MG Q3H PRN 08/31 14 AC IN Atropine Sulfate 0.5 MG Q3MIN PRN 08/31 14 AC IV Lidocaine HCl See Dose ONCE PRN 08/31 14 AC Insts (2) IV Magnesium Hydroxide 10 ML DAILY PRN 08/31 14 AC PO Metoprolol Tartrate See Dose Q3H PRN 08/31 14 AC 09/01 Insts (3) IV 0156 Morphine Sulfate 2 MG Q3M PRN 08/31 14 AC IV Nitroglycerin 0.4 MG Q5M PRN 08/31 14 AC SL Ondansetron HCl 4 MG Q6H PRN 08/31 14 AC IV Dose Instructions: (1)Insulin Human Lispro: MEDIUM DOSE SLIDING SCALE (2)Lidocaine HCl: 1.5 MG/KG (3)Metoprolol Tartrate: 2.5 - 5 MG Allergies Coded Allergies: Lisinopril (caused increase in BP 11/30/14) Metformin (kidney issue 11/30/14) No Known Drug Allergy (05/09/98) Simvastatin (08/31/16) Physical Exam Vital Signs / I&Os Vital Signs Date Time Temp Pulse Resp B/P Pulse O2 O2 Flow FiO2 Ox Delivery Rate 09/03 0600 75 17 125/65 96 Nasal 1.0 Cannula 09/03 0500 78 22 111/50 98 Nasal 2.0 Cannula 09/03 0400 77 21 117/67 99 Nasal 2.0 Cannula 09/03 0310 97.9 78 14 126/59 95 Nasal 2.0 Cannula 09/03 0200 66 18 109/54 99 Nasal 2.0 Cannula 09/03 0133 2.0 09/03 0100 75 19 116/56 98 Nasal 2.0 Cannula 09/03 0016 88 21 117/66 96 Nasal 2.0 Cannula 09/02 2118 99.0 90 17 113/59 98 Nasal 2.0 Cannula 09/02 2116 90 / 2051 2.0 09/03 1999 Nasal 2.0 Cannula 09/02 1801 97.7 59 16 89/45 97 Nasal 2.0 Cannula 09/02 1441 97.7 65 18 102/57 99 09/02 1100 97.5 68 18 97/56 97 Room Air 2.0 09/02 0945 Room Air 09/02 0816 2.0 09/02 0813 61 09/02 0732 97.9 59 18 94/50 94 Nasal 0.5 Cannula I&O 09/03 0000 09/02 1600 09/02 0800 Intake Total 621 740 100 Output Total 1050 1850 350 Balance -429 -1110 -250 General Appearance Alert, Cooperative, No acute distress Lungs Scattered rhonchi, minimal expiratory wheezes. Cardiovascular Normal S1 and S2, irregular rhythm, rate controlled Abdomen Normal bowel sounds, Soft, No tenderness Extremities No cyanosis, No clubbing Neurological Cranial nerves intact, No lateralizing signs Psych/Mental Status Confused LAB Results Laboratory Tests 09/03 09/02 0425 1950 Chemistry Plasma Sodium (136 - 145 mmol/L) 140 Plasma Potassium (3.5 - 5.1 mmol/L) 3.8 Plasma Chloride (98 - 107 mmol/L) 106 CO2 (Enzymatic) (21 - 32 mmol/L) 26 BUN (7 - 18 mg/dL) 36 Creatinine (0.6 - 1.3 mg/dL) 1.6 Est GFR ( Amer) (mL/min) 55.16 Est GFR (Non-Af Amer) (mL/min) 45.51 Glucose (70 - 110 mg/dL) 102 Plasma Calcium (8.5 - 10.1 mg/dL) 8.2 Total Bilirubin (0.0 - 1.0 mg/dL) 0.5 AST (15 - 37 U/L) 101 ALT (12 - 78 U/L) 156 Alkaline Phosphatase (46 - 116 U/L) 71 Total Protein (6.4 - 8.2 g/dL) 5.9 Albumin (3.3 - 5.0 g/dL) 2.7 Coagulation INR (0.8 - 1.2) 1.1 Hematology WBC (4.5 - 11.5 K/uL) 11.8 RBC (4.50 - 5.90 M/uL) 4.48 Hgb (13.5 - 17.5 gm/dL) 13.0 Hct (41.0 - 53.0 %) 40.0 MCV (80 - 100 fL) 89 MCH (26 - 34 pg) 29 RDW (11.6 - 14.8 %) 15.7 Neut % (Auto) (50 - 75 %) Pending Lymph % (Auto) (25 - 40 %) Pending [place]ess % (Auto) (3 - 14 %) Pending Band Neutrophils % (0 - 8 %) Pending Plt Count, EDTA (150 - 400 K/uL) 208 PUBS MCHC (31 - 37 g/dL) 33 Assessment and Plan Problem List 1. Atrial flutter Status Acute Onset Date Unknown Plan -Rate controlled -Continue anticoagulation -Probable discharge in a.m. 2. Diabetes mellitus Status Chronic Onset Date Unknown Plan -Blood sugar improved. Continue present therapy -Possible discharge in a.m. 3. CHF (congestive heart failure) Plan -Status improved -LV ejection fraction 20-25% -Continue Lasix 20 mg by mouth daily, Cozaar 25 mg by mouth twice a day, Coreg 12.5 mg by mouth every 12 hours. -Check BNP in a.m. -Low-salt diet -CHF education 4. UTI (urinary tract infection) Status Acute Onset Date Unknown Plan -Patient presented with UA suggestive of UTI -Urine C&S negative. Current status: Fair, improved Anticipated discharge date: Anticipated discharge 1-2 days Anticipated discharge placement: Home Patient care time: Time spent in chart review, patient interview, physical exam, CPOE, and care documentation: 25 minutes Visit to patient today: 1 Complexity of care: Moderate E&M Codes Rounding: Inpt-Moderate/[id number]
[2016-09-04 01:52] VITALS: BP 116/60
[2016-09-04 07:00] VITALS: BP 124/65
[2016-09-04 10:50] VITALS: BP 112/53
[2016-09-04] MEDS ORDERED: WARFARIN SODIUM5 MG PO (13:11)
[2016-09-04] MEDS ORDERED: DILTIAZEM HCL30 MG PO (13:12)
[2016-09-04] MEDS ORDERED: LOSARTAN POTASS25 MG PO (13:13)
[2016-09-04] MEDS ORDERED: FUROSEMIDE40 MG PO (13:14)
[2016-09-04] MEDS ORDERED: HUMALOG KWI100 MG/ML SC (13:17)
[2016-09-04] MEDS ORDERED: ALBUTEROL HFA60 DOSE IN (13:19)
--- NOTE | 2016-09-04 13:32 | Provider's Discharge Care Plan ---
Problem, Goal, Plan Problem List 1. Atrial flutter Goals: Improve disease control, Prevent disease progress Instructions: Follow up as directed, Take meds as directed, Avoid processed foods 2. CAD (coronary artery disease) Goals: Improve disease control, Prevent disease progress Instructions: Follow up as directed, Take meds as directed, Avoid processed foods, Follow-up with cardiology for further coronary risk stratification. Keep appointment scheduled at time of discharge (.) 3. CHF (congestive heart failure) Goals: Improve disease control, Improve function, Prevent disease progress Instructions: Follow up as directed, Take meds as directed, Avoid processed foods, Low-salt diet. Follow-up with cardiology as noted above 4. Diabetes mellitus Goals: Improve disease control, Improve function, Improved health/wellness, Prevent disease progress Instructions: Follow up as directed, Take meds as directed, Avoid processed foods 5. Chronic anticoagulation Goals: Improve disease control, Prevent disease progress Instructions: Follow up as directed, Take meds as directed, Follow-up for protime (INR) in a.m. as scheduled.
[2016-09-04 14:50] VITALS: BP 122/58
--- NOTE | 2016-09-04 16:25 | Discharge Summary ---
Discharge Summary Report Admit Date 08/31/16 Discharge Date 09/04/16 Admission Diagnosis 1. Atrial flutter 2. Congestive heart failure 3. Coronary disease 4. Diabetes mellitus 5. UTI Discharge Diagnosis 1. Atrial flutter 2. Congestive heart failure 3. Coronary disease 4. Diabetes mellitus 5. UTI-ruled out Brief History The patient is a 71-year-old white male with a significant past medical history of gastroesophageal reflux, chronic kidney disease stage III, diabetes mellitus, obstructive sleep apnea, coronary artery disease, hyperlipidemia, CHF, chronic back pain, peripheral arterial disease, colonic polyps, who presented to [facility] [place] emergency department on the day of admission secondary to complaints of shortness of breath of 4 days duration. [facility] ER evaluation was consistent with new onset atrial flutter with rapid ventricular response-150/minute, CHF. Secondary to the above, the patient was admitted by Jaylan Sevilla M.D. for further evaluation and treatment. For other history present illness, past medical history, family history, social history, review of systems, and admission physical examination please see the patient's history and physical examination and ER visit note in the patient's medical record. Hospital Course The following problems and their management were noted during the patient's hospitalization: 1. Atrial flutter The patient was admitted with findings of atrial flutter/fibrillation. He was treated with Cardizem 30 mg by mouth twice a day and Coreg 12.5 mg by mouth twice a day. Echocardiogram was performed during the patient's hospital stay. Results are noted below. The patient has significant CHF with global hypokinesis. See treatment of CHF below. The patient was referred to cardiology consultation with [facility] cardiologists. 2. Congestive heart failure The patient has findings of CHF. He was treated with Cozaar 25 mg by mouth twice a day, Lasix 40 mg by mouth daily, Coreg 12.5 mg by mouth twice a day. His symptoms were much improved at the time of discharge. He will follow-up for cardiology consultation with [facility] next week. The patient has been instructed to follow a low-salt diet. CHF education given. 3. Coronary disease The patient has a history of coronary disease. He had no chest pain during his hospitalization. No signs of myocardial ischemia/infarction. He will follow-up with cardiology as noted above next week. 4. Diabetes mellitus The patient has a long-standing history of diabetes mellitus. Blood sugars well controlled during his hospital stay. He was discharged on Lantus and Humalog insulin. See discharge instructions. 5. UTI-ruled out The patient presented with findings of possible UTI on urinalysis. Follow-up urine C&S was negative. No further evaluation was undertaken. General Appearance Alert, Oriented X3, Cooperative, No acute distress Lungs Scattered rhonchi, otherwise clear to auscultation Cardiovascular Normal S1, Normal S2, irregular rhythm, rate controlled Abdomen Normal bowel sounds, Soft, No tenderness Neurological Strength at 5/5 X4 ext, Cranial nerves 3-12 NL Psych/Mental Status Mental status NL, Mood NL Lab/Imaging Laboratory Tests 09/04 0550 Chemistry Plasma Sodium (136 - 145 mmol/L) 139 Plasma Potassium (3.5 - 5.1 mmol/L) 4.1 Plasma Chloride (98 - 107 mmol/L) 108 CO2 (Enzymatic) (21 - 32 mmol/L) 25 BUN (7 - 18 mg/dL) 24 Creatinine (0.6 - 1.3 mg/dL) 1.3 Est GFR ( Amer) (mL/min) >60 Est GFR (Non-Af Amer) (mL/min) 57.84 Glucose (70 - 110 mg/dL) 159 Plasma Calcium (8.5 - 10.1 mg/dL) 8.1 Total Bilirubin (0.0 - 1.0 mg/dL) 0.4 AST (15 - 37 U/L) 60 ALT (12 - 78 U/L) 116 Alkaline Phosphatase (46 - 116 U/L) 66 Total Protein (6.4 - 8.2 g/dL) 5.7 Albumin (3.3 - 5.0 g/dL) 2.4 Coagulation INR (0.8 - 1.2) 1.3 Hematology WBC (4.5 - 11.5 K/uL) 9.0 RBC (4.50 - 5.90 M/uL) 4.33 Hgb (13.5 - 17.5 gm/dL) 12.4 Hct (41.0 - 53.0 %) 38.3 MCV (80 - 100 fL) 89 MCH (26 - 34 pg) 29 RDW (11.6 - 14.8 %) 15.6 Neut % (Auto) (50 - 75 %) 51 Lymph % (Auto) (25 - 40 %) 24 [place] % (Auto) (3 - 14 %) 6 Eos % (Auto) (0 - 4 %) 4 Baso % (Auto) (0 - 2 %) 0 Band Neutrophils % (0 - 8 %) 15 Metamyelocytes % (0 - 1 %) 0 Myelocytes (0 - 1 %) 0 Other Cell Type 0 Plt Count, EDTA (150 - 400 K/uL) 202 Anisocytosis (manual) 1+ PUBS MCHC (31 - 37 g/dL) 32 Echocardiogram Impression: The left ventricle is normal in size. There is mild concentric left ventricular hypertrophy. Left ventricular systolic function is severely reduced. The ejection fraction is estimated to be 20-25%. There is moderate to severe global hypokinesis of the left ventricle. The right ventricle is mildly dilated. Right ventricular systolic function is severely reduced. The right ventricular systolic pressure is estimated at 46 mmHg assuming a right atrial pressure of 15 mm Hg. The left atrium is moderately dilated. The right atrium is mildly dilated. There is mild to moderate mitral regurgitation. There is mild aortic valve sclerosis. There is no hemodynamically significant valvular aortic stenosis. There is mild tricuspid regurgitation. There is no other significant valvular heart disease. The aortic root is mildly dilated. Dictated by: JESSIE BURGESS MD D: JOHNATHAN;09/01/16 1514 Discharge Instructions/Meds For other recommendations regarding discharge diet, activity, followup, and discharge medications please see the patient's discharge instructions. Discharge condition: Fair, improved Greater than 30 min. was spent in the patient's discharge preparation including discharge interview and physical examination, progress note, discharge instructions, and discharge summary The patient was interviewed and examined on the day of discharge. E&M Codes Discharge: Inpt >30 min spent/07004
== END 2016-09-04 15:00 | disposition home or self-care (01) | DRG 309 ==
LOC: ED SRH 20:32 → TRANS SRH 23:21 → CC SRH 08-31 01:17
PROVIDERS: ADMIT Internal Medicine
DX: I48.92 Unspecified atrial flutter (principal); I48.91 Unspecified atrial fibrillation; I13.0 Hypertensive heart and chronic kidney disease with heart failure and stage 1 through stage 4 chronic kidney disease, or unspecified chronic kidney disease; I50.22 Chronic systolic (congestive) heart failure; N18.3 Chronic kidney disease, stage 3 (moderate); E11.22 Type 2 diabetes mellitus with diabetic chronic kidney disease; F17.210 Nicotine dependence, cigarettes, uncomplicated; R74.8 Abnormal levels of other serum enzymes; J44.9 Chronic obstructive pulmonary disease, unspecified; I25.10 Atherosclerotic heart disease of native coronary artery without angina pectoris; G47.33 Obstructive sleep apnea (adult) (pediatric); Z95.1 Presence of aortocoronary bypass graft; Z79.4 Long term (current) use of insulin